=== PATIENT | male | born 1985 | race Caucasian/White ===

== ENCOUNTER → 2019-10-09 14:14 | Outpatient (BNVA) | payer OTHER, SELFPAY | PROVIDERS: Family Provider Nurse Practitioner; Referring Provider Nurse Practitioner; Visit Provider Specialist | DX: R56.9 Unspecified convulsions (principal); Z87.891 Personal history of nicotine dependence | CPT/HCPCS: 99203; 99213 ==

== ENCOUNTER 2020-12-05 01:10 | Emergency (ER) | payer OTHER, SELFPAY ==
--- NOTE | 2020-12-05 01:12 | XRR_ITS ---
PROCEDURE INFORMATION: Exam: XR Left Knee Exam date and time: 12/05/2020 1:13 AM Age: 35 years old Clinical indication: Injury or trauma; Fall; Blunt trauma; Knee; Left TECHNIQUE: Imaging protocol: XR Left knee. Views: 3 views. COMPARISON: No relevant prior studies available. FINDINGS: Bones/joints: Normal. Soft tissues: Normal. XR/XR knee LT 3V* [id number] IMPRESSION: No acute findings.
[2020-12-05 01:17] VITALS: BP 146/76; PULSE 80; RESP 16; TEMP 36.5; O2SAT 98; BMI 32.1
[2020-12-05 01:38] VITALS: PULSE 68
--- NOTE | 2020-12-05 01:47 | ED_ITS ---
HPI - Extremity Problem General: Chief complaint: Extremity Injury, Lower Stated complaint: LEFT KNEE INJURY Time Seen by Provider: 12/05/20 01:21 Source: patient Mode of arrival: ambulatory Limitations: no limitations History of Present Illness: HPI Narrative: Patient comes in for injury to the left knee. Patient reports he got up on skateboard and the skateboard maneuvered wrong causing him to slip out from under it twisting his left knee. Patient reports difficulty maintaining the knee in alignment and has been wearing a hinged brace. Injury occurred this afternoon. Patient does have a history of ankle knee repair. Patient appears well. Patient appears in mild pain at rest. MD Complaint: extremity pain Location: left and knee Relieving factors: cold therapy Exacerbating factors: weight bearing Review of Systems General: Reports: 10 or more systems reviewed and unremarkable except in HPI and below Musc: Reports: other (Left knee injury) PFS ED PFSH: Family History Other CAD (coronary artery disease) Diabetes Hypertension Stroke Social History Smoking and tobacco status: former smoker Quit status (tobacco): has quit using tobacco Year quit tobacco: 2007 Alcohol intake: current Alcohol intake frequency: few times a week Alcohol type: beer Physical Exam Const: COMMON NORMALS: no acute distress and patient oriented x3 GENERAL APPEARANCE: cooperative HENMT: COMMON NORMALS: normocephalic and Normal external nose present HEAD & SCALP: normal to inspection and normocephalic NOSE: Normal external nose present Eye: GENERAL EYE: appearance normal, both eyes and all related structures Neck/C-Spine: COMMON NORMALS: full ROM Chest: COMMONS NORMALS: normal inspection of the chest Resp: COMMON NORMALS: normal respiratory effort EFFORT & INSPECTION: Yes able to speak in complete sentences Cardio: COMMON NORMALS: regular rate and regular rhythm RATE: regular rate RHYTHM: regular rhythm GI: COMMON NORMALS: non-tender Back/Pelvis: COMMON NORMALS: thoracic and lumbar spine normal to inspection Extremity: NARRATIVE EXTREMITY EXAM: Tenderness noted to the medial knee pain. No sign of significant swelling or deformity is noted. Neuro: COMMON NORMALS: patient oriented x3 and moves all extremities Psych: COMMON NORMALS: mental status grossly normal and cooperative Skin: COMMON NORMALS: no rashes or lesions noted GENERAL SKIN EXAM: no rashes or lesions noted Course Vital Signs: Vital signs: Vital Signs Temperature 97.7 F 12/05/20 01:17 Pulse Rate 68 12/05/20 01:38 Respiratory Rate 16 12/05/20 01:17 Blood Pressure 146/76 12/05/20 01:17 Pulse Oximetry 98 12/05/20 01:17 MDM - Extremity (Nontraumatic) MDM Narrative: Medical decision making narrative: Patient comes in for pain and discomfort to the left knee. On exam patient has distal pulses intact. No obvious swelling is noted. No obvious deformity is noted. Patient has significant tenderness to the lateral aspect of the knee joint. Differential diagnosis includes but not limited to sprain, internal derangement of the knee, meniscus tear, cruciate ligament injury. Reviewed exam with patient with recommendations for treatment and follow-up. Patient reported understanding agreed to plan. Patient was written prescription for pain medication and anti- inflammatory. Patient was recommended to follow-up with orthopedics in 1 week for recheck of knee and further evaluation. Patient reported understanding. C ase management referral was placed. Discharge Plan Discharge Patient Disposition: Home Clinical Impression: Acute internal derangement of knee Qualifiers: Laterality: left Qualified Code(s): M23.92 - Unspecified internal derangement of left knee Condition: Stable Prescriptions: New hydrocodone-acetaminophen 5-325 mg tablet 1 tab PO Q6H PRN (Reason: pain) Qty: 14 RF: 0 diclofenac sodium 75 mg tablet,delayed release (DR/EC) 75 mg PO BID Qty: 20 RF: 0 No Action omeprazole 40 mg capsule,delayed release(DR/EC) 40 mg PO QDAY RF: 0 lisinopril-hydrochlorothiazide 10-12.5 mg tablet 2 tab PO QDAY RF: 0 hydrocodone-acetaminophen 7.5-325 mg tablet 1 tab PO BID RF: 0 Zyrtec 10 mg capsule 10 mg PO QDAY RF: 0 montelukast [Singulair] 10 mg tablet 10 mg PO QDAY RF: 0 Discharge Orders: Discharge ED (Routine); Ordered 12/05/20 Ordered By: Nicolás Andrews Referrals: Maria Eugenia Webster FNP [Family Provider] - Discharge Diet: Usual diet Discharge Activity: Increase activity as tolerated Patient Instructions: Knee Pain (ED), Opioid Safety Activity Restrictions/Additional Instructions: Wear hinged brace as you have been. Increase activity as tolerated. Use a cane or crutches for mobility. Take medications only as directed. Drink plenty of water with medication. Follow-up with primary care for further treatment. Follow-up with orthopedics for repeat evaluation the knee in 1 week. Return to the emergency department for new concerns. Coding Level of Care Code ED Food Assembler for John Fwjosh Exam Comprehensive
[2020-12-05] MEDS: HYDROcodone-acetaminophen 7.5-325 mg Tablet 1 TAB PO (02:11)
[2020-12-05 02:15] VITALS: BP 141/90; PULSE 78; RESP 18; O2SAT 97
--- NOTE | 2020-12-06 12:26 | DCPLANNER ---
Addendum entered by Xochilt Flores 12/06/20 12:27: Patient has [facility] insurance, manager of case management emailed patients information to Malka with [facility], for a consult to be placed, so that the authorization can be started. Original Note: manager real estate had message to schedule a followup appointment for patient with ortho. manager real estate called the ortho clinic, spoke with Ksenia, gave clinic patients information. manager real estate was told that patients information would be printed and reviewed. Clinic will call patient with appointment information.
--- NOTE | 2020-12-09 08:01 | DCPLANNER ---
Patient has a follow up appointment scheduled for Monday, December 14, 2020 at 2:[address] Villalobos at [facility]. Clinic will call patient with appointment information.
--- NOTE | 2020-12-29 13:17 | DCPLANNER ---
Patient had a follow up appointment scheduled for 12.14.[address] Villalobos at [facility] - patient did attend appointment.
== END 2020-12-05 02:16 | disposition home or self-care (01) ==
LOC: ER 02:14
PROVIDERS: Emergency Provider Nurse Practitioner Family; PCP Nurse Practitioner
DX: M23.92 Unspecified internal derangement of left knee (principal); Z87.891 Personal history of nicotine dependence; X50.1XXA Overexertion from prolonged static or awkward postures, initial encounter
CPT/HCPCS: 73562; 99283

== ENCOUNTER 2021-02-18 06:46 | Outpatient (CLI) | payer OTHER, SELFPAY ==
--- NOTE | 2021-02-18 07:15 | MR_ITS ---
WS: [id number] MRI LEFT KNEE NONCONTRAST TECHNIQUE: Axial PD, coronal PD fat sat, coronal PD, sagittal PD, and sagittal PD fat-sat images obta ined. CLINICAL INFORMATION: S83.412A - Sprain of medial collateral ligament of left knee COMPARISON: MRI June 20, 2018 FINDINGS: Distal quadriceps and patella tendons are intact. Hypertrophic patella. Normal ACL and PCL. Normal me dial and lateral meniscus. No acute appearing meniscal tears. Fluid and edema along the superficial and deep fibers of the medial collateral ligament which appears grossly intact. Findings consistent with grade 2 MCL injury. Normal lateral collateral ligament. Mil d chondromalacia patella. No subchondral edema. Normal popliteal fossa. MR/MR knee LT wo con* [id number] IMPRESSION: 1. Fluid along the superficial and deep fibers of the MCL consistent with grad e 2 injury. MCL appears grossly intact. 2. Normal ACL and PCL. 3. Medial and lateral meniscus are normal in appearance. 4. Mild chondromalacia patella. No subchondral edema. Outbridge grading:
== END 2021-02-18 06:47 | disposition home or self-care (01) ==
LOC: RADSHAW 06:47
PROVIDERS: PCP Nurse Practitioner; Visit Provider Orthopaedic Surgery
DX: S83.412A Sprain of medial collateral ligament of left knee, initial encounter (principal); M22.42 Chondromalacia patellae, left knee; X58.XXXA Exposure to other specified factors, initial encounter
CPT/HCPCS: 73721

== ENCOUNTER → 2021-07-18 08:21 | Outpatient (BNVA) | payer OTHER, SELFPAY | PROVIDERS: PCP Nurse Practitioner; Visit Provider Surgery | DX: Z11.52 Encounter for screening for COVID-19 (principal); Z20.822 Contact with and (suspected) exposure to COVID-19 | CPT/HCPCS: 87635 ==

== ENCOUNTER 2021-07-22 06:35 | Day surgery (SDC) | payer OTHER, SELFPAY ==
[2021-07-20 16:44] VITALS: BMI 33.2
--- NOTE | 2021-07-22 06:57 | ANES.PREANE2 ---
Pre-Anesthetic Assessment Pre-Anesthetic Assessment: Height/Weight: Height 1.83 m Weight 111.13 kg Preop Diagnosis: panendoscopy Proposed Procedure: Operation Date: 07/22/21 08:00 Proposed Procedures p EGD/colon [id number] K92.1(Not Applicable) - Joe Crane MD s Colonoscopy(Not Applicable) - Joe Crane MD Familial anesthetic complications: none Was Beta Sofia taken within 24 hours: N/A Was Clonidine taken within 24 hours: N/A Last intake: > 8 hrs Social: Social History: No alcohol and No tobacco Exam: Pre-Anes Outpt Exam: alert, oriented x 3, clear to auscultation bilaterally and regular rate & rhythm Airway: Cervical ROM: WNL MP: 4 Dentition: Full Additional comments: blum Pulmonary: Pulmonary: None reported CV/HEM: CV/HEM: HTN GI: GI: GERD Musc/skel: Comments: torn meniscus, ankle reconstruction Anesthetic Plan: ASA status: 2 Anesthesia: MAC Risk of > 500 ml blood loss (7ml/kg in children): No PFSH Anesthesia PFSH: Medical History (Updated 04/26/21 @ 08:56 by Joe Crane MD) Deafness GERD (gastroesophageal reflux disease) Hypertension Surgical History (Updated 04/26/21 @ 08:50 by Joe Crane MD) History of ankle surgery (3) bilateral History of back surgery ablation of nerves in back L3-L5 History of esophagogastroduodenoscopy (EGD) 2011 S/P left knee arthroscopy July 2018 Family History Other CAD (coronary artery disease) Diabetes Hypertension Stroke Social History Smoking and tobacco status: never smoked Quit status (tobacco): has quit using tobacco Year quit tobacco: 2007 Alcohol intake: current Alcohol intake frequency: few times a week Alcohol type: beer Data Anesthesia Cardiac Studies: No Data to Display
[2021-07-22 07:13] VITALS: BP 167/100; PULSE 78; RESP 18; TEMP 36.5; O2SAT 96
[2021-07-22] MEDS: sodium chloride 0.9% 1,000 ML 30 ML IV (07:24)
--- NOTE | 2021-07-22 08:21 | W.PM.OPSFHP ---
Same Day Surgery H&P Indication for Procedure/HPI DATE OF PROCEDURE: July 22, 2021 CHIEF COMPLAINT/INDICATIONFOR SURGICAL PROCEDURE: egd/colonoscopy for hematochezia PREOP DIAGNOSIS: panendoscopy PLANNED PROCEDRUE: Operation Date: 07/22/21 08:00 Proposed Procedures p EGD/colon [id number] K92.1(Not Applicable) - Joe Crane MD s Colonoscopy(Not Applicable) - Joe Crane MD Medications/Allergies* Home Medications Medication Instructions Recorded Confirmed Type cetirizine 10 mg capsule 10 mg PO QDAY 10/09/19 07/20/21 History lisinopril 10 2 tab PO QDAY tab 10/09/19 07/20/21 History mg-hydrochlorothiazide 12.5 mg tablet montelukast 10 mg tablet 10 mg PO QDAY 10/09/19 07/20/21 History omeprazole 40 mg capsule,delayed 40 mg PO QDAY 10/09/19 07/20/21 History release Allergies/Adverse Reactions Allergy/AdvReac Type Severity Reaction Status Date / Time No Known Allergies Allergy Verified 07/22/21 07:04 Current Medications: Generic Name Dose Route Start Last Admin Trade Name Freq PRN Reason Stop Dose Admin Sodium Chloride 1,000 mls @ 30 mls/hr 07/22/21 07:00 07/22/21 07:24 Sodium Chloride 0.9% IV 07/23/21 06:59 30 mls/hr .Q24H HUDSON Administration Pertinent History/Comorbid Conditions* Medical History (Updated 04/26/21 @ 08:56 by Joe Crane MD) Deafness GERD (gastroesophageal reflux disease) Hypertension Surgical History (Updated 04/26/21 @ 08:50 by Joe Crane MD) History of ankle surgery (3) bilateral History of back surgery ablation of nerves in back L3-L5 History of esophagogastroduodenoscopy (EGD) 2011 S/P left knee arthroscopy July 2018 Family History (Updated 10/09/19 @ 15:41 by Dori Cook LPN) Diabetes CAD (coronary artery disease) Hypertension Stroke Social History Smoking and tobacco status: never smoked Quit status (tobacco): has quit using tobacco Year quit tobacco: 2007 Alcohol intake: current Alcohol intake frequency: few times a week Alcohol type: beer Pertinent Exam Findings alert, oriented x 3 and regular rate & rhythm Recommendations Surgery/Procedure today Coding Level of Care Code Acute Legal Executive for Chg Fwd
[2021-07-22 08:52] VITALS: BP 128/91; PULSE 79; RESP 18; TEMP 36.1; O2SAT 94
[2021-07-22 09:31] VITALS: BP 149/101; PULSE 89; RESP 20; O2SAT 98
== END 2021-07-22 09:32 | disposition home or self-care (01) ==
PROVIDERS: PCP Nurse Practitioner; Visit Provider Surgery
PROC: 0DJ08ZZ Inspection of Upper Intestinal Tract, Via Natural or Artificial Opening Endoscopic (ICD-10-PCS; CPT 43235; principal; 2021-07-22 08:00)
PROC: 0DJD8ZZ Inspection of Lower Intestinal Tract, Via Natural or Artificial Opening Endoscopic (ICD-10-PCS; CPT 45378; 2021-07-22 08:00)
DX: K92.1 Melena (principal); K21.9 Gastro-esophageal reflux disease without esophagitis; K64.8 Other hemorrhoids; I10 Essential (primary) hypertension; Z87.891 Personal history of nicotine dependence; Z82.49 Family history of ischemic heart disease and other diseases of the circulatory system
CPT/HCPCS: 43235; 45378; 96360; 96361; J2704; J7030

== ENCOUNTER 2022-02-15 20:00 | Inpatient (IN) | payer OTHER, MEDICARE, SELFPAY ==
[2022-02-15 20:12] VITALS: BP 147/83; PULSE 120; RESP 18; TEMP 36.7; O2SAT 94
--- NOTE | 2022-02-15 20:19 | ED_ITS ---
HPI - General Adult General: Chief complaint: Psychiatric Symptoms Stated complaint: 96 Time Seen by Provider: 02/15/22 20:17 History of Present Illness: [37]yo patient w/ hx of depression presenting for worsening depression with SI. No active plans currently, On arrival, the patient is AAOx3 and cooperative with my evaluation. No focal complaints of chest pain, shortness of breath, palpitations, N/V, focal GI/ complaints. Currently denies HI. No complaints of hallucinations. Onset: acute Duration: ongoing Location: home Severity: severe Associated symptoms: Deny chest pain, dyspnea, nausea, rash, palpitations or vomiting Review of Systems Const: Denies: fever(s) or chills Eyes: Denies: change in vision ENMT: Denies: mouth pain Card: Denies: chest pain or palpitations Resp: Denies: dyspnea or non-productive cough GI: Denies: abdominal pain, nausea, vomiting or diarrhea : Denies: dysuria Musc: Denies: extremity pain Skin/Breast: Denies: rash or new lesions Neuro: Denies: weakness in extremities Psych: Reports: depression and suicidal ideation Andreas/Lymph: Denies: easy bruising PFSH ED PFSH: Medical History Deafness GERD (gastroesophageal reflux disease) Hypertension Surgical History History of ankle surgery (3) bilateral History of back surgery ablation of nerves in back L3-L5 History of esophagogastroduodenoscopy (EGD) (07/22/21) grade b espophagitis S/P left knee arthroscopy July 2018 Status post colonoscopy (07/22/21) Family History Other CAD (coronary artery disease) Diabetes Hypertension Stroke Social History Smoking and tobacco status: never smoked Quit status (tobacco): has quit using tobacco Year quit tobacco: 2007 Alcohol intake: current Alcohol intake frequency: few times a week Alcohol type: beer Physical Exam Const: COMMON NORMALS: alert HENMT: COMMON NORMALS: atraumatic HEAD & SCALP: atraumatic MOUTH: moist mucous membranes not abnormal Eye: COMMON NORMALS: EOMs intact bilaterally and conjunctivae normal CONJUNCTIVA: Yes conjunctivae normal Neck/C-Spine: COMMON NORMALS: full ROM and supple Resp: COMMON NORMALS: normal respiratory effort and clear to auscultation bilaterally AUSCULTATION: clear to auscultation bilaterally Cardio: COMMON NORMALS: regular rate RATE: regular rate GI: COMMON NORMALS: Soft to palpation and non-tender PALPATION: Yes Soft to palpation Extremity: COMMON NORMALS: full ROM Neuro: SENSORIUM/ORIENTATION: Yes alert MOTOR EXAM: No Abnormal motor strength present and Other motor observations present (no focal motor deficits) Psych: COMMON NORMALS: speech normal SPEECH: Yes normal speech MOOD & AFFECT: Yes depressed mood Course Vital Signs: Vital signs: Vital Signs Temperature 98.0 F 02/15/22 20:12 Pulse Rate 120 H 02/15/22 20:12 Respiratory Rate 18 02/15/22 20:12 Blood Pressure 147/83 02/15/22 20:12 Pulse Oximetry 94 02/15/22 20:12 MDM - General Adult Medical Decision Making [37]yo patient w/ hx ofd depression presenting for SI with depression. HDS, exam within normal limit Thoughts are linear and organized, and the patient has no AH/VH, or HI. Clinically the patient displays no overt toxidrome; they are well appearing, with low suspicion for toxic ingestion given history and exam. Symptoms unlikely 2/2 anemia, hypothyroidism, infection, or ICH. Workup: CBC, CMP, Lipase, salicylate/tylenol, UDS Lab findings: wnl, +marijuana in the urine [10:00pm] On reassessment, labs and workup wnl. Patient is hemodynamically stable with no acute medical complaints. Case discussed with psychiatric provider Dr. Cain at [facility] psych inpatient with recommendation for admission. Patient received ativan for anxiety. Disposition: Psych Lab Data : 02/15/22 20:18 02/15/22 20:18 Laboratory Results WBC 10.5 10^3/uL (4.0-10.0) H 02/15/22 20:18 RBC 4.64 10^6/uL (4.1-5.3) 02/15/22 20:18 Hgb 13.0 g/dL (11.7-16.6) 02/15/22 20:18 Hct 38.4 % (42.0-52.0) L 02/15/22 20:18 MCV 82.8 fl (80-94) 02/15/22 20:18 MCH 28.0 pg (28.0-34.0) 02/15/22 20:18 MCHC 33.9 g/dL (30.0-36.0) 02/15/22 20:18 RDW 13.4 % (12.1-15.1) 02/15/22 20:18 Plt Count 249 10^3/cmm (130-400) 02/15/22 20:18 MPV 11.8 fL (7.4-10.4) H 02/15/22 20:18 Neut % (Auto) 63.4 % 02/15/22 20:18 Lymph % (Auto) 26.8 % 02/15/22 20:18 Walton % (Auto) 7.5 % 02/15/22 20:18 Eos % (Auto) 1.6 % 02/15/22 20:18 Baso % (Auto) 0.4 % 02/15/22 20:18 Neut # (Auto) 6.64 10^3/uL (1.8-7.7) 02/15/22 20:18 Lymph # (Auto) 2.8 10^3/uL (0.8-4.8) 02/15/22 20:18 Walton # (Auto) 0.8 10^3/uL (0.2-0.9) 02/15/22 20:18 Eos # (Auto) 0.2 10^3/uL (0.0-0.8) 02/15/22 20:18 Baso # (Auto) 0.0 10^3/uL (0.0-0.1) 02/15/22 20:18 Nucleated RBC % (auto) 0 % 02/15/22 20:18 Nucleated RBCs # 0.0 /100WBC 02/15/22 20:18 Sodium 135 mmol/L (136-145) L 02/15/22 20:18 Potassium 3.7 mmol/L (3.5-5.1) 02/15/22 20:18 Chloride 97 mmol/L (98-107) L 02/15/22 20:18 Carbon Dioxide 22 mmol/L (22-29) 02/15/22 20:18 Anion Gap 19.7 (5-19) H 02/15/22 20:18 BUN 17 mg/dL (6-20) 02/15/22 20:18 Creatinine 1.1 mg/dL (0.7-1.2) 02/15/22 20:18 GFR Calculation 75.7 mL/min (90-130) L 02/15/22 20:18 Glucose 127 mg/dL (65-115) H 02/15/22 20:18 Calculated Osmolality 283 mOsm/kg (285-295) L 02/15/22 20:18 Calcium 9.7 mg/dL (8.5-10.5) 02/15/22 20:18 Total Bilirubin 0.2 mg/dL (0.15-1.2) 02/15/22 20:18 AST 24 U/L (0-40) 02/15/22 20:18 ALT 31 U/L (0-41) 02/15/22 20:18 Alkaline Phosphatase 71 IU/L (40-130) 02/15/22 20:18 Total Protein 7.9 g/dL (6.6-8.7) 02/15/22 20:18 Albumin 5.1 g/dL (3.5-5.2) 02/15/22 20:18 Globulin 2.8 g/dL (1.3-4.6) 02/15/22 20:18 Lipase 34 U/L (13-60) 02/15/22 20:18 Salicylates < 0.3 mg/dL (3-10) L 02/15/22 20:18 Urine Opiates Screen Negative ng/mL (Negative) 02/15/22 20:18 Acetaminophen < 5.0 ug/mL (10-30) L 02/15/22 20:18 Ur Barbiturates Screen Negative ng/mL (Negative) 02/15/22 20:18 Ur Phencyclidine Scrn Negative ng/mL (Negative) 02/15/22 20:18 Ur Amphetamines Screen Negative ng/mL (Negative) 02/15/22 20:18 U Benzodiazepines Scrn Negative ng/mL (Negative) 02/15/22 20:18 Urine Cocaine Screen Negative ng/mL (Negative) 02/15/22 20:18 U Marijuana (THC) Screen Positive ng/mL (Negative) H 02/15/22 20:18 Discharge Plan Discharge Admit Provider: Saji Cain Condition: Stable Coding Level of Care Code ED Phone Manager for Chg Fwd Exam Comprehensive
[2022-02-15 20:24] LABS: Basophils % 0.4 %; Eosinophils # 0.2 10^3/uL (0.0-0.8); Eosinophils % 1.6 %; Hematocrit 38.4 % (42.0-52.0); Lymphocytes # 2.8 10^3/uL (0.8-4.8); Lymphocytes % 26.8 %; Mean Corpuscular HGB Conc 33.9 g/dL (30.0-36.0); Mean Corpuscular Volume 82.8 fl (80-94); Mean Platelet Volume 11.8 fL (7.4-10.4); Monocytes # 0.8 10^3/uL (0.2-0.9); Monocytes % 7.5 %; Neutrophils # 6.64 10^3/uL (1.8-7.7); Neutrophils % 63.4 %; Nucleated Red Blood Cells % 0 %; Platelet Count 249 10^3/cmm (130-400); Red Blood Count 4.64 10^6/uL (4.1-5.3); Red Cell Distribution Width 13.4 % (12.1-15.1); White Blood Count 10.5 10^3/uL (4.0-10.0)
[2022-02-15 20:35] LABS: Amphetamines Screen Urine Negative (Negative); Barbiturates Screen Urine Negative (Negative); Benzodiazepines Screen Urine Negative (Negative); Cocaine Screen Urine Negative (Negative); Opiate Screen Urine Negative (Negative); PCP Screen Urine Negative (Negative); THC Screen Urine Positive (Negative)
[2022-02-15 20:50] LABS: Alanine Aminotransferase 31 U/L (0-41); Albumin Level 5.1 g/dL (3.5-5.2); Alkaline Phosphatase 71 IU/L (40-130); Anion Gap 19.7 (5-19); Aspartate Amino Transferase 24 U/L (0-40); Blood Urea Nitrogen 17 mg/dL (6-20); Calcium 9.7 mg/dL (8.5-10.5); Carbon Dioxide 22 mmol/L (22-29); Chloride 97 mmol/L (98-107); Globulin 2.8 g/dL (1.3-4.6); Glomerular Filtration Rate 75.7 mL/min (90-130); Glucose 127 mg/dL (65-115); Lipase 34 U/L (13-60); Osmolality Calculated 283 mOsm/kg (285-295); Potassium 3.7 mmol/L (3.5-5.1); Sodium 135 mmol/L (136-145); Total Bilirubin 0.2 mg/dL (0.15-1.2); Total Protein 7.9 g/dL (6.6-8.7)
[2022-02-15 20:51] LABS: Acetaminophen < 5.0 ug/mL (10-30); Salicylate < 0.3 mg/dL (3-10)
[2022-02-15] MEDS: nicotine 21 mg Patch 1 PATCH TRANSDERMA (20:55)
[2022-02-15] MEDS: LORazepam 2 mg Tablet PO (22:09)
[2022-02-15 22:24] VITALS: PULSE 92; RESP 16; O2SAT 99
[2022-02-15 22:29] VITALS: BP 121/79; PULSE 108; RESP 20; TEMP 36.8; O2SAT 96
[2022-02-15] MEDS: hyDROXYzine 25 mg Capsule 50 MG PO (23:08)
[2022-02-15 23:28] VITALS: BMI 32.1
[2022-02-15] MEDS: oxymetazoline 0.05% Nasal Spray 15 mL 2 SPRAY NOSTRIL-B (23:30)
--- NOTE | 2022-02-15 23:44 | PC.NURSE ---
ADMISSION ER- 37 yo patient w/ hx of depression presenting for worsening depression with SI. No active plans currently, On arrival, the patient is AAOx3 and cooperative with my evaluation. No focal complaints of chest pain, shortness of breath, palpitations, N/V, focal GI/ complaints. Currently denies HI. No complaints of hallucinations. Onset: acute NPU- PT IS COOPERATIVE, A&OX4. HAS APPROPRIATE AFFECT AND EYE CONTACT. THOUGHT PROCESS IS CLEAR. DOES APPEAR TENSE THROUGHOUT ADMISSION. PT REPORTS THAT RECENTLY HE'S BEEN UNDER STRESS AND DOES, AT TIMES, HAVE INTERMITTENT SI. HAS ONE PRIOR ATTEMPT IN 2012. REPORTS THAT HIS MARRIAGE IS MANJINDER AT THIS TIME. STATES HE WAS SEEING SOMEONE FOR OUTPATIENT AT THE [facility] 2X WEEK BUT THEY HAVE RETIRED NOW AND HAS BEEN UNABLE TO GET A CONNECTION WITH ANYONE HE HAS SEEN SINCE. DENIES ANY CURRENT SI. DENIES HI AND AVH. REPORTS USES MARIJUANA AND CBD DAILY. REPORTS HAVING A DIFFICULT TIME WITH BEING IN THE [place] AND WITH CIVILIANS. USES A CANE D/T NERVE DAMAGE TO LOWER BACK, AND ISSUES WITH HIS KNEES AND ANKLES WITH MULTIPLE SURGERIES. NOT ON ANY PSYCH MEDS. HX OF HIATAL HERNIA, CYST BENEATH KNEE CAP, LOWER LUMBAR NERVE ABLATION, B/L KNEE AND ANKLE SURGERIES, ACID REFLUX, HTN, PTSD, BIPOLAR, DEPRESSION.
[2022-02-16 06:00] VITALS: BP 110/66; PULSE 80; RESP 17; TEMP 36.8; O2SAT 99
[2022-02-16] MEDS: pantoprazole DR 40 mg Tablet PO (06:57)
[2022-02-16] MEDS: hydroCHLOROthiazide 25 mg Tablet PO (07:58)
[2022-02-16] MEDS: lisinopril 20 mg Tablet PO (07:58)
[2022-02-16] MEDS: cetirizine 10 mg Tablet PO (07:58)
[2022-02-16] MEDS: montelukast sodium 10 mg Tablet PO (07:58)
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
[2022-02-16] MEDS: nicotine 2 mg Gum BUCCAL (10:44)
--- NOTE | 2022-02-16 11:15 | DCPLANNER ---
IMM was completed with pt on 02/16/22 @ 1045am. Pt was given a copy of rights and stated he understood his rights.
[2022-02-16] MEDS: duloxetine 30 mg Capsule PO (12:30)
[2022-02-16 14:00] VITALS: BP 110/66; PULSE 80; RESP 17; TEMP 36.8; O2SAT 99
[2022-02-16 14:26] VITALS: BP 110/66; PULSE 80; RESP 17; TEMP 36.8; O2SAT 99
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
== END 2022-02-16 14:28 | disposition home or self-care (01) | DRG 881 ==
LOC: ER 20:38 → NP 22:03
PROVIDERS: Admitting Provider Psychiatry & Neurology Psychiatry; Emergency Provider Emergency Medicine; PCP Nurse Practitioner; Visit Provider Psychiatry & Neurology Psychiatry
DX: F32.9 Major depressive disorder, single episode, unspecified (principal); R45.851 Suicidal ideations; G89.29 Other chronic pain; F43.10 Post-traumatic stress disorder, unspecified; Z81.1 Family history of alcohol abuse and dependence; H91.90 Unspecified hearing loss, unspecified ear; K21.9 Gastro-esophageal reflux disease without esophagitis; I10 Essential (primary) hypertension; Z87.891 Personal history of nicotine dependence; E66.9 Obesity, unspecified; Z68.32 Body mass index [BMI] 32.0-32.9, adult
CPT/HCPCS: 80053; 80306; 80307; 83690; 85025; 97150; 97165; 99285

== ENCOUNTER 2022-03-18 14:24 | Emergency (ER) | payer OTHER, MEDICARE, SELFPAY ==
[2022-03-18 14:49] VITALS: BP 121/60; PULSE 106; RESP 18; TEMP 36.3; O2SAT 95; BMI 32.5
--- NOTE | 2022-03-18 15:41 | W.ED.WOUNDLC ---
HPI - Wound/Laceration General: Chief Complaint: Wound/Laceration Stated Complaint: head injury PFSH ED PFSH: Medical History (Updated 02/16/22 @ 11:16 by Jaylan Domingo MD) Deafness GERD (gastroesophageal reflux disease) Hypertension Surgical History History of ankle surgery (3) bilateral History of back surgery ablation of nerves in back L3-L5 History of esophagogastroduodenoscopy (EGD) (07/22/21) grade b espophagitis S/P left knee arthroscopy July 2018 Status post colonoscopy (07/22/21) Family History Other CAD (coronary artery disease) Diabetes Hypertension Stroke Social History Smoking and tobacco status: never smoked Quit status (tobacco): has quit using tobacco Year quit tobacco: 2007 Alcohol intake: current Alcohol intake frequency: few times a week Alcohol type: beer Course Vital Signs: Vital signs: Vital Signs Temperature 97.4 F L 03/18/22 14:49 Pulse Rate 106 H 03/18/22 14:49 Respiratory Rate 18 03/18/22 14:49 Blood Pressure 121/60 03/18/22 14:49 Pulse Oximetry 95 03/18/22 14:49 Discharge Plan Discharge Condition: Stable Prescriptions: No Action omeprazole 40 mg capsule,delayed release(DR/EC) 40 mg PO DAILY 0RF lisinopril-hydrochlorothiazide 10-12.5 mg tablet 2 tab PO DAILY 0RF Zyrtec 10 mg capsule 10 mg PO DAILY 0RF montelukast [Singulair] 10 mg tablet 10 mg PO DAILY 0RF Referrals: Maria Eugenia Webster, LATHE HAND [Primary Care Provider] - Coding Level of Care Code ED Party Plan Sales Agent for [facility]
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
== END 2022-03-18 16:36 | disposition home or self-care (01) ==
PROVIDERS: Emergency Provider Emergency Medicine; PCP Nurse Practitioner
DX: S01.01XA Laceration without foreign body of scalp, initial encounter (principal); I10 Essential (primary) hypertension; Z87.891 Personal history of nicotine dependence; W22.8XXA Striking against or struck by other objects, initial encounter
CPT/HCPCS: 12002; 99282

== ENCOUNTER → 2022-07-24 14:56 | Outpatient (BNVA) | payer OTHER, SELFPAY | PROVIDERS: PCP Nurse Practitioner; Referring Provider Nurse Practitioner; Visit Provider Podiatrist Foot & Ankle Surgery | DX: M76.72 Peroneal tendinitis, left leg (principal) | CPT/HCPCS: 73610; 73630; 99204 ==

== ENCOUNTER 2022-08-17 06:51 | Outpatient (CLI) | payer OTHER, SELFPAY ==
--- NOTE | 2022-08-17 07:15 | MR_ITS ---
WS: [id number] MRI LEFT ANKLE without CONTRAST. COMPARISON: LEFT ankle radiograph 07/24/2022 Multiplanar, multisequence imaging is performed without contrast. History: LEFT ankle pain, chronic. Prior surgery 2018. No acute fracture or marrow edema. There is a very small osteochondral lesion distal fibula. No acute fracture. No osteochondral lesions along the talar dome. The distal Achilles tendon is normal caliber. No thinning or increased signal. Plantar aponeurosis an d fascia is negative. No significant spurring or fibrosis. There is a very slight mild striation within the talofibular ligament but the ligament is intact. Thi s may be from prior injury. No complete or recent tear. No surrounding fluid. Peroneus brevis tendon is intact without full-thickness tear. There is increased T2 signal extending over a length of several centimeters consistent with a split tear. This may be chronic. There is very slight irregularity along the posterior surface of the tendon at the level of the fibular tip. This is also the site of a magic angle phenomenon which is an artifact. This signal extends over a length of numerous centimeters therefore I do believe this is probably a minimal chronic peroneus brevis te ndon tear. The longus tendon is normal caliber. No fluid along the tendon sheath. Flexor and extensor tendons are unremarkable. There is increased fluid surrounding the os trigonum. The adjacent flexor hallucis longus tendon is n ormal. MR/MR ankle LT wo con* [id number] IMPRESSION: 1. No marrow edema or fracture. 2. Subtle increased T2 signal extending through the peroneus brevis tendon ove r several centimeters beginning posterior to the distal fibula. Suspect this is probably a chronic split tear. This is also a common location for magic angle phenomenon. Due to the length of the signal abnormality believe this is probabl y related to a split tear which may be chronic. No adjacent fluid. 3. Small amount of fluid surrounding the os trigonum. No involvement of the f lexor hallucis longus tendon sheath.
== END 2022-08-17 06:52 | disposition home or self-care (01) ==
PROVIDERS: PCP Nurse Practitioner; Visit Provider Podiatrist Foot & Ankle Surgery
DX: M76.72 Peroneal tendinitis, left leg (principal)
CPT/HCPCS: 73721

== ENCOUNTER → 2022-08-21 08:23 | Outpatient (BNVA) | payer OTHER, SELFPAY | PROVIDERS: PCP Nurse Practitioner; Visit Provider Podiatrist Foot & Ankle Surgery | DX: M76.72 Peroneal tendinitis, left leg (principal); S86.312A Strain of muscle(s) and tendon(s) of peroneal muscle group at lower leg level, left leg, initial encounter; X58.XXXA Exposure to other specified factors, initial encounter | CPT/HCPCS: 99214 ==

== ENCOUNTER → 2022-11-13 07:55 | Outpatient (BNVA) | payer OTHER, SELFPAY | PROVIDERS: PCP Nurse Practitioner; Visit Provider Podiatrist Foot & Ankle Surgery | DX: M76.72 Peroneal tendinitis, left leg (principal); S86.312A Strain of muscle(s) and tendon(s) of peroneal muscle group at lower leg level, left leg, initial encounter; X58.XXXA Exposure to other specified factors, initial encounter | CPT/HCPCS: 99213 ==

== ENCOUNTER 2022-12-06 08:01 | Outpatient (CLI) | payer OTHER, SELFPAY ==
--- NOTE | 2022-12-06 08:14 | MR_ITS ---
WS: [id number] MRI CERVICAL SPINE NONCONTRAST TECHNIQUE: Sagittal T1, T2 and STIR imaging. Axial T2, gradient, and fiesta imaging. CLINICAL INFORMATION: NECK PAIN RADIATING UP TO THE TOP OF HIS HEAD COMPARISON: None. FINDINGS: Straightening of the normal cervical lordosis. Cord signal is normal. No high-grade central canal michelle rowing. C2-C3: Mild facet arthropathy. Spinal canal and foramen are patent. C3-C4: Minimal disc bulging. Mild osteophytic ridging. Mild LEFT bony foraminal narrowing. Mild facet arthropathy. Spinal canal is patent. C4-C5: Mild disc bulging. Moderate facet arthropathy slightly worse in the LEFT. Mild LEFT bony jasson inal narrowing. C5-C6: Slight retrolisthesis C5 on C6. Tiny annular fissure. Mild LEFT and no significant RIGHT jasson inal narrowing. Moderate facet arthropathy. Spinal canal is patent. C6-C7: Mild bilateral bony foraminal narrowing. Spinal canal and foramen are patent. Mild facet arthr opathy. C7-T1: Mild LEFT and no significant RIGHT foraminal narrowing. Spinal canal is patent. Mild bilateral bony foraminal narrowing T1-T2. Visualized brain stem structures: Normal. Prevertebral soft tissues: Normal. MR/MR cervical spin wo con* [id number] IMPRESSION: 1. Straightening of the normal cervical lordosis. Cord signal is normal. 2. Mild disc bulging C5-C6 with a tiny annular fissure. Spinal canal is patent . 3. Mild bony foraminal narrowing more prominent at LEFT C3-C4, LEFT C4-C5, LEF T C5-C6 and bilateral C6-C7. 4. Mild to moderate facet arthropathy worse at C3-C4, C4-C5, and C5-C6.
== END 2022-12-06 08:02 | disposition home or self-care (01) ==
LOC: RAD 08:06
PROVIDERS: PCP Nurse Practitioner; Visit Provider Nurse Practitioner
DX: M50.222 Other cervical disc displacement at C5-C6 level (principal); M48.02 Spinal stenosis, cervical region; M47.812 Spondylosis without myelopathy or radiculopathy, cervical region
CPT/HCPCS: 72141

== ENCOUNTER 2023-01-07 09:00 | Emergency (ER) | payer OTHER, SELFPAY ==
[2023-01-07 09:07] VITALS: BP 170/92; PULSE 75; TEMP 36.6; O2SAT 95; BMI 31.8
--- NOTE | 2023-01-07 09:28 | XRR_ITS ---
PROCEDURE INFORMATION: Exam: XR Right Wrist Exam date and time: 01/07/2023 9:48 AM Age: 37 years old Clinical indication: Injury or trauma; Fall; Blunt trauma (contusions or hematomas); Wrist; Right; Additional info: Pain, swelling, ecchymosis TECHNIQUE: Imaging protocol: Radiologic exam of the right wrist. Views: 1 or 2 views. COMPARISON: No relevant prior studies available. FINDINGS: Bones/joints: Minimally displaced acute oblique fracture of the 5th distal metacarpal metaphysis. The wrist is unremarkable. Soft tissues: Normal. XR/XR wrist RT 2V [id number] IMPRESSION: Distal 5th metacarpal fracture.
--- NOTE | 2023-01-07 09:28 | XRR_ITS ---
PROCEDURE INFORMATION: Exam: XR Right Hand Exam date and time: 01/07/2023 9:48 AM Age: 37 years old Clinical indication: Injury or trauma; Fall; Blunt trauma (contusions or hematomas); Hand; Right; Additional info: Pain, swelling, ecchymosis TECHNIQUE: Imaging protocol: Radiologic exam of the right hand. Views: 3 or more views. COMPARISON: No relevant prior studies available. FINDINGS: Bones/joints: There is a minimally displaced oblique fracture of the distal 5th metacarpal metaphysis. Joint alignment is normal. No fracture is seen elsewhere. Soft tissues: Soft tissue edema in the hypothenar eminence and dorsomedial aspect of the hand. XR/XR hand RT min 3V* [id number] IMPRESSION: Fifth metacarpal fracture.
--- NOTE | 2023-01-07 09:29 | W.ED.EXTPRO ---
HPI - Extremity Problem General: Chief complaint: Extremity Injury, Upper Stated complaint: right hand injury Time Seen by Provider: 01/07/23 09:11 History of Present Illness: Mr. Robin is a [id number] 37-year-old man presents with right wrist and hand swelling, ecchymosis, pain. Patient states he has had a rough week with this extremity. He has soft tissue injuries noted to the dorsal aspect of the right index finger and middle finger. He also has ecchymosis to the ulnar aspect of the right wrist and now has developed swelling and ecchymosis to the right dorsal and palmar aspect of the hand. This was sustained when he slipped on the olguin this morning and landed on his right upper extremity. He noted ecchymosis to the palm as well as the dorsal aspect of the hand. Patient reports he is up-to-date on tetanus Denies any chronic medical conditions that contributory Associated symptoms: Deny chest pain, fever(s) or rash Review of Systems General: Reports: 10 or more systems reviewed and unremarkable except in HPI and below Const: Denies: fever(s), chills, change in appetite, change in weight, fatigue or malaise Eyes: Denies: change in vision, eye discomfort, eye discharge or eye redness ENMT: Denies: throat pain, enlarged tonsils, odynophagia, hoarseness, ear or mastoid pain, ear discharge, change in hearing, tinnitus, nasal discharge, nasal congestion, post nasal drip or sinus pain Card: Denies: chest pain, palpitations, irregular heart rhythm, edema, dyspnea on exertion, orthopnea or leg pain with exertion Resp: Denies: dyspnea, productive cough, non-productive cough, wheezing, stridor or chest congestion GI: Denies: abdominal pain, nausea, vomiting, dysphagia, diarrhea, constipation, bloating, GI cramping or hematochezia : Denies: flank pain, dysuria, urinary frequency, urinary urgency, urinary hesitancy, oliguria or hematuria Musc: Denies: neck pain, back pain, extremity pain, joint pain, joint swelling, joint redness, joint warmth or muscle weakness Skin/Breast: Denies: rash, pruritus, erythema, photosensitivity or new lesions Neuro: Denies: headache(s), numbness in extremities, weakness in extremities, sensory changes, lack of coordination, difficulty walking, frequent falls, dizziness, confusion, Slurred speech present, difficulty communicating thoughts, seizure-like activity or involuntary movements Endo: Denies: polyuria, polydipsia or tired all the time Andreas/Lymph: Denies: easy bruising or easy bleeding PFSH ED PFSH: Medical History Deafness GERD (gastroesophageal reflux disease) Hypertension Surgical History History of ankle surgery (3) bilateral History of back surgery ablation of nerves in back L3-L5 History of esophagogastroduodenoscopy (EGD) (07/22/21) grade b espophagitis S/P left knee arthroscopy July 2018 Status post colonoscopy (07/22/21) Family History Other CAD (coronary artery disease) Diabetes Hypertension Stroke Social History Smoking and tobacco status: never smoked Quit status (tobacco): has quit using tobacco Year quit tobacco: 2007 Alcohol intake: current Alcohol intake frequency: few times a week Alcohol type: beer Substance/Drug Use: never Physical Exam Const: COMMON NORMALS: no acute distress, patient oriented x3 and alert GENERAL APPEARANCE: cooperative ORIENTATION/CONSCIOUSNESS: Yes awake, Yes oriented to person, Yes oriented to place and Yes oriented to time HENMT: COMMON NORMALS: normocephalic and atraumatic HEAD & SCALP: normocephalic and atraumatic FACE & SINUS: normal facial exam MOUTH: Normal oral and palatal mucosa present THROAT: posterior oropharynx normal Eye: COMMON NORMALS: Equal, round and reactive pupils present, EOMs intact bilaterally, conjunctivae normal and no scleral icterus GENERAL EYE: appearance normal, both eyes and all related structures ALIGNMENT: Yes alignment normal PERIORBITAL: periorbital findings normal CONJUNCTIVA: Yes conjunctivae normal PUPIL: Yes Equal, round and reactive pupils present Neck/C-Spine: COMMON NORMALS: full ROM GENERAL: Yes normal visual inspection Lymph: LYMPHATIC: no lymphadenopathy noted Chest: COMMONS NORMALS: normal inspection of the chest Breast/axilla inspection: Yes no chest deformity, asymmetry, normal contours, no nodules, masses, tenderness Resp: COMMON NORMALS: normal respiratory effort, No retractions, No use of accessory muscles and clear to auscultation bilaterally EFFORT & INSPECTION: Yes able to speak in complete sentences and Yes symmetric chest movement AUSCULTATION: clear to auscultation bilaterally Cardio: COMMON NORMALS: regular rate, regular rhythm and Peripheral pulses 2+ throughout RATE: regular rate RHYTHM: regular rhythm PERIPHERAL PULSES: Peripheral pulses 2+ throughout GI: COMMON NORMALS: Normal to inspection, nondistended, normoactive bowel sounds present, Soft to palpation, non-tender and No hepatosplenomegaly present INSPECTION: Yes normal to inspection AUSCULTATION: Yes normoactive bowel sounds PALPATION: Yes Soft to palpation and Yes No hepatosplenomegaly present RECTAL EXAM: Yes deferred Extremity: COMMON NORMALS: normal to inspection GENERAL: Yes normal exam except as noted OTHER: Skin is clean and dry. Abrasions noted to hand He has ecchymosis and edema to the hand as well as wrist Patient is able to extend his wrist, give thumbs up, make an okay sign, cross fingers, abduct fingers and make a fist Sensations intact light touch at radial, median, ulnar nerve distribution Neuro: COMMON NORMALS: patient oriented x3 SENSORIUM/ORIENTATION: Yes alert, Yes oriented to person, Yes oriented to place and Yes oriented to time CRANIAL NERVES: Yes CN normal except as noted Psych: COMMON NORMALS: mental status grossly normal, Normal thought process present, cooperative, activity/motor behavior normal, denies homicidal ideation and denies suicidal ideation THOUGHT PROCESS: Normal thought process present Skin: COMMON NORMALS: no rashes or lesions noted, no wounds and turgor normal GENERAL SKIN EXAM: no rashes or lesions noted and turgor normal OTHER: Ecchymosis, swelling, tenderness to palpation to the right hand and wrist Neurovascularly intact Course Vital Signs: Vital signs: Vital Signs Temperature 98 F 01/07/23 09:07 Pulse Rate 75 01/07/23 09:07 Blood Pressure 170/92 01/07/23 09:07 Pulse Oximetry 95 01/07/23 09:07 Oxygen Delivery Me thod Room Air 01/07/23 09:07 MDM - Extremity (Nontraumatic) Medical Decision Making Patient was evaluated in the emergency department for right wrist and hand swelling. Patient extremity was iced and he underwent XR imaging of the wrist and hand which reveals 5th metacarpal fracture. Patient was treated with Toradol IM and placed in an ulnar gutter splint. He has been instructed to remain nonweightbearing with that right upper extremity. No lifting pushing or pulling. Patient is going to follow-up with Dr. Villalobos. Referral has been sent. Has been provided splint care instructions Lab Data Radiology Impressions Hand X-Ray 01/07/23 09:28 IMPRESSION: Fifth metacarpal fracture. Wrist X-Ray 01/07/23 09:28 IMPRESSION: Distal 5th metacarpal fracture. Discharge Plan Discharge Patient Disposition: Home Clinical Impression: Fracture of hand Condition: Stable Prescriptions: No Action omeprazole 40 mg capsule,delayed release(DR/EC) 40 mg PO DAILY lisinopril-hydrochlorothiazide 10-12.5 mg tablet 2 tab PO DAILY Zyrtec 10 mg capsule 10 mg PO DAILY montelukast [Singulair] 10 mg tablet 10 mg PO DAILY hydrocodone-acetaminophen 7.5-325 mg tablet 1 tab PO Q8H PRN (DME) Low profile custom molded insoles See Rx Instructions .Route .MEDSUPPLY Qty: 1 0RF Rx Instructions: As directed Discharge Orders: Discharge ED (Routine); Ordered 01/07/23 Ordered By: Gabriel Brady Referrals: Maria Eugenia Webster, 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 Villalobos. Coding Level of Care Code ED [employer] Inspector for John Segovia
== END 2023-01-07 11:41 | disposition home or self-care (01) ==
PROVIDERS: Emergency Provider Nurse Practitioner; PCP Nurse Practitioner
DX: S62.306A Unspecified fracture of fifth metacarpal bone, right hand, initial encounter for closed fracture (principal); I10 Essential (primary) hypertension; Z87.891 Personal history of nicotine dependence; W01.0XXA Fall on same level from slipping, tripping and stumbling without subsequent striking against object, initial encounter
CPT/HCPCS: 29130; 73100; 73130; 99283

== ENCOUNTER 2023-01-17 11:47 | Outpatient (CLI) | payer OTHER, SELFPAY | END 2023-01-17 11:48 | disposition home or self-care (01) | LOC: SPT 11:49 | PROVIDERS: PCP Nurse Practitioner; Visit Provider Orthopaedic Surgery | DX: Z46.89 Encounter for fitting and adjustment of other specified devices (principal); S62.366D Nondisplaced fracture of neck of fifth metacarpal bone, right hand, subsequent encounter for fracture with routine healing; X58.XXXD Exposure to other specified factors, subsequent encounter | CPT/HCPCS: 26600; 97760; 99212; L3984 ==

== ENCOUNTER → 2024-02-06 14:11 | Outpatient (BNVA) | payer OTHER, SELFPAY | PROVIDERS: PCP Nurse Practitioner; Referring Provider Nurse Practitioner; Visit Provider Surgery | DX: K42.9 Umbilical hernia without obstruction or gangrene (principal) | CPT/HCPCS: 99203; 99214 ==

== ENCOUNTER 2024-02-14 13:59 | Outpatient (CLI) | payer OTHER, SELFPAY ==
--- NOTE | 2024-02-14 14:21 | CT_ITS ---
WS: [id number] CT ABDOMEN WITH AND WITHOUT CONTRAST HISTORY: UMBILICAL HERNIA Contiguous dual phase 5 mm axial imaging performed to the abdomen. Oral contrast has been provided. C oronal and sagittal reformats are submitted. All CT scans at [facility] use at least one of t hese dose optimization techniques: automated exposure control; mA and/or kV adjustment per patient si ze (includes targeted exams where dose is matched to clinical indication); or iterative reconstructio n. IV CONTRAST: Omnipaque 350; 100 mL IV. Oral contrast: Yes. DLP: 1233.26 mGy.cm COMPARISON: None available. Lower thorax: Lung bases are clear. Heart is normal size. Small hiatal hernia. Liver/biliary system: Normal size liver. Mild hepatic steatosis. There are several scattered too smal l to characterize hypodensities scattered throughout the liver. These are too small to further charac terize. No bile duct dilatation. Gallbladder: Normal. No gallstones or wall thickening. No pericholecystic fluid. Pancreas: Normal size pancreas and pancreatic duct. No adjacent inflammation. Spleen: Normal size spleen. No mass or infarct. Adrenal glands: Normal. Right kidney: Normal. Left kidney: Normal. Aorta: Normal. Lymphadenopathy: None. Free fluid: None. GI tract: Negative as visualized to the abdomen. Abdominal wall: Umbilical hernia contains omental fat only. Orifice of the hernia is 13 mm. No additi onal abdominal wall hernia identified in the abdomen. Visualized osseous structures: Unremarkable. CT/CT abdomen wo/w con [id number] IMPRESSION: 1. Fat-containing ventral umbilical hernia. Orifice is 13 mm of the hernia. 2. There are several scattered hypodensities throughout the liver which are to o small to characterize. Differential includes small cysts, hemangiomas, biliar y hamartomas or early metastatic lesions. This can be reevaluated by ultrasound or hepatic MRI with and without contrast. 3. Small hiatal hernia.
[2024-02-14] MEDS: iohexol 300 mg/mL 100 mL Btl IV (15:20)
[2024-02-14] MEDS: iohexol 350 mg/mL 500 mL Btl (per mL) PO (15:20)
== END 2024-02-14 14:00 | disposition home or self-care (01) ==
LOC: RAD 13:59
PROVIDERS: PCP Nurse Practitioner; Visit Provider Nurse Practitioner
DX: K42.9 Umbilical hernia without obstruction or gangrene (principal); K44.9 Diaphragmatic hernia without obstruction or gangrene
CPT/HCPCS: 74170; Q9967

== ENCOUNTER 2024-04-08 06:24 | Outpatient (CLI) | payer OTHER, SELFPAY ==
--- NOTE | 2024-04-08 07:35 | MR_ITS ---
WS: [id number] MRI/MRCP OF THE ABDOMEN WITHOUT GADOLINIUM ENHANCEMENT TECHNIQUE: Coronal T2 Fase BH, Axial T2 Fase BH, Axial T2 FS BH, Zxial 3D Kathleen BH, Axial DWI BH, 2D MRCP Radial BH, 3D MRCP (Resp), and Axial 3D Dyn BH Post sequences. CLINICAL INFORMATION: LIVER LESIONS COMPARISON: CT 02/14/2024 FINDINGS: Again seen are numerous tiny T2 hyperintense lesions within both hepatic lobes. Most of these appear to represent tiny hepatic cysts without enhancement. Some are too small to definitively characterize but likely represent tiny cysts. 12-month follow-up to confirm stability. Mild diffuse fatty infiltration of the liver. Small esophageal hernia. Normal pancreas. Normal spleen . Small splenule. Adrenal glands are normal. No hydronephrosis in either kidney. Normal caliber upper abdominal aorta. Portal vein and splenic vein are patent. Normal gallbladder. No other suspicious fi ndings. No abnormal gadolinium enhancement. MR/MR abdomen wo/w con* [id number] Impression: 1. Numerous tiny hepatic lesions most of which appear to represent tiny cysts without enhancement. Some remain too small to definitively characterize and rec ommend 12-month follow-up CT abdomen/pelvis to ensure stability. 2. Diffuse fatty infiltration of liver. 3. Small esophageal hiatal hernia. 4. No other suspicious findings.
[2024-04-08] MEDS: gadobenate dimeglumine 20 mL vial IV (09:02)
== END 2024-04-08 06:25 | disposition home or self-care (01) ==
LOC: RAD 06:24
PROVIDERS: PCP Nurse Practitioner; Visit Provider Nurse Practitioner
DX: Q44.6 Cystic disease of liver (principal); K44.9 Diaphragmatic hernia without obstruction or gangrene; K76.0 Fatty (change of) liver, not elsewhere classified
CPT/HCPCS: 74183; A9577

== ENCOUNTER 2024-04-17 06:32 | Outpatient (CLI) | payer OTHER, SELFPAY ==
--- NOTE | 2024-04-17 | ECG_ITS ---
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 Interpretive Statements NAME OF STUDY: LEXISCAN SESTAMIBI STRESS TEST INDICATION: [Chest Pain] Procedure: At the baseline, the blood pressure was 140/95 mmHg with a heart rate of 56 bpm. The electrocardiogram showed sinus bradycardia, normal axis with normal ST and T's. The Lexiscan was infused over a period of 20 seconds. A total of 0.4 mg of Lexiscan was infused. The stress phase was continued for a total of 5 minutes. Heart rate was at the end of stress phase was 67 bpm and a blood pressure of 153/92 mmHg. The EKG at the peak infusion revealed normal sinus rhythm with no significant ST-T wave changes. Sestamibi was injected 20 seconds after the Lexiscan infusion. Blood pressure at the end of recovery phase was 147/100 mmHg with a heart rate of 67 bpm. Conclusion: 1. Normal EKG response to Lexiscan infusion 2. No Lexiscan induced chest pain or cardiac arrhythmia. 3. Normal blood pressure and heart rate response. 4. Sestamibi/sestamibi perfusion scan pending; see separate report. Electronically Signed On 04-27-2024 20:59:41 CDT by Charlie Velasquez M.D. [email or web address]
[2024-04-17 06:56] VITALS: BMI 33.0
--- NOTE | 2024-04-17 07:08 | NMCV_ITS ---
NM carine perf SPECT r/s* [id number] Bishop Robin Age: 39 Gender: M : 1985 Exam Date: 04/17/2024 07:51 Ordering Phys: Maria Eugenia Webster Technologist: MARITZA Castellon Exam Location: [facility] Indications: CP STRESS TEST Please see separate stress test report in [facility] for full findings IMAGE PROTOCOL Rest/Stress 1 Lexiscan Day Radiopharmaceutical Dose (mCi) Administration Site Administered by Rest: Tc-99m 10.7 IV MARITZA Knutson Sestamibi Stress:Tc-99m 32.7 IV MARITZA Castellon Sestamiisaac Rest: 17-Apr-2024 60 Discovery 630 Stress: 17-Apr-2024 30 Discovery 630 0.4mg Lexiscan. Images obtained in supine and prone position. SPECT RESULTS Technical Quality: Good Raw Data Analysis: Normal Image Corrections: No attenuation or motion correction applied Summed Stress Score: 9 Summed Rest Score: 8 Summed Difference Score: 4 PERFUSION FINDINGS There is a medium sized area of moderate intensity, partially reversible perfusion defect seen in inferior wall. This is consistent with medium sized area of prior infarct with small to medium sized area of hugh-infarct ischemia in the RCA territory. FUNCTIONAL RESULTS (calculated via Gated SPECT) Stress Image LV EF (%): 59 Stress EDV (mL):152 TID: 1.08 Stress ESV (mL):62 FUNCTIONAL FINDINGS: There is normal left ventricular systolic function. IMPRESSIONS 1. Medium sized area of prior infarct with small to medium sized area of hugh- infarct ischemia seen in RCA territory. 2. LV systolic function is normal. Charlie Velasquez MD (Electronically Signed) Final Date: 17 April 2024 13:03 S
[2024-04-17] MEDS: regadenoson 0.4 Mg/5 ml Syringe IVP (08:49)
[2024-04-17 09:05] VITALS: BP 159/99; PULSE 62
== END 2024-04-17 06:33 | disposition home or self-care (01) ==
LOC: CDL 06:32
PROVIDERS: PCP Nurse Practitioner; Visit Provider Nurse Practitioner
DX: R07.9 Chest pain, unspecified (principal); R94.39 Abnormal result of other cardiovascular function study
CPT/HCPCS: 36415; 78452; 93017; 96374; A9500; J2785

== ENCOUNTER → 2024-06-30 13:45 | Outpatient (BNVA) | payer OTHER, SELFPAY | PROVIDERS: PCP Nurse Practitioner; Visit Provider Internal Medicine Cardiovascular Disease | DX: R94.39 Abnormal result of other cardiovascular function study (principal); I10 Essential (primary) hypertension; E78.5 Hyperlipidemia, unspecified; R06.09 Other forms of dyspnea; G47.33 Obstructive sleep apnea (adult) (pediatric); F17.200 Nicotine dependence, unspecified, uncomplicated | CPT/HCPCS: 99204 ==

== ENCOUNTER 2024-07-21 08:32 | Outpatient (CLI) | payer OTHER, SELFPAY ==
--- NOTE | 2024-07-21 10:00 | USCV_ITS ---
Bishop Robin Age: 39 Gender: M : 1985 Exam Date: 07/21/2024 09:00 Ordering Phys: Gurvinder Vega MD ([email or web address]) Technologist: [place] [facility] [place]: cp BP: 140 / 90 HR: 64 Rhythm: Sinus Technical Quality: Adequate MEASUREMENTS (Male / Female) Normal Values 2D ECHO LV Diastolic Diameter PLAX 4.1 cm 4.2 - 5.9 / 3.9 - 5.3 cm IVS Diastolic Thickness 1.3 cm 0.6 - 1.0 / 0.6 - 0.9 cm IVS Systolic Thickness 1.8 cm LVPW Diastolic Thickness 1.9 cm 0.6 - 1.0 / 0.6 - 0.9 cm LVPW Systolic Thickness 1.8 cm LVOT Diameter 2.1 cm LV Ejection Fraction 2D Teich 62.7 % LV Ejection Fraction MOD 4C 61.0 % LV Ejection Fraction MOD 2C 71.5 % LV Ejection Fraction 2C AL 73.2 % LA Diameter 3.8 cm RA Systolic Volume 4C AL 49.0 ml RA Systolic Volume 4C MOD 45.0 ml Aorta at Sinotubular Diameter 3.8 cm IVC Diameter 2.3 cm M-MODE LA Ao Ratio MM 1.0 AV Cusp Separation MM 2.6 cm DOPPLER AV Peak Velocity 124.0 cm/s LVOT Peak Velocity 89.0 cm/s AV Area Cont Eq vti 3.3 cm squared AV Area Cont Eq pk 2.5 cm squared MV Area PHT 2.9 cm squared Mitral E to A Ratio 1.1 TV Peak Velocity 135.0 cm/s TR Peak Velocity 137.0 cm/s TR Peak Gradient 7.5 mmHg TV Peak E Velocity 82.0 cm/s Right Atrial Pressure 3.0 mmHg Pulmonary Artery Systolic Pressu 10.5 mmHg PV Peak Velocity 117.0 cm/s FINDINGS Left Ventricle Normal left ventricular size and systolic function, EF 61%.no regional wall motion abnormalities. Mild concentric left ventricular hypertrophy, some features of grade 1 left- ventricular diastolic dysfunction Right Ventricle The right ventricle is normal in size and function. Right Atrium The right atrium is normal in size. Left Atrium The left atrium is normal in size. Mitral Valve No gross abnormalities noted . Aortic Valve No gross abnormalities noted . Tricuspid Valve Trace tricuspid valve regurgitation. Estimated pulmonary artery peak systolic pressure possibly within normal limits Pulmonic Valve No gross abnormalities noted . Pericardium Normal pericardium without effusion. Aorta Normal ascending aorta dimension. IVC Inferior vena cava not visualized. CONCLUSIONS Normal left ventricular size and systolic function, EF 61%.no regional wall motion abnormalities. Mild concentric left ventricular hypertrophy, some features of grade 1 left- ventricular diastolic dysfunction. Trace tricuspid valve regurgitation. Estimated pulmonary artery peak systolic pressure possibly within normal limits. There is no pericardial effusion. There are no intracardiac masses. No similar previous studies are available for comparison Dr Gurvinder Vega MD [facility] (Electronically Signed) Final Date: 22 July 2024 10:04 S
== END 2024-07-21 08:33 | disposition home or self-care (01) ==
PROVIDERS: PCP Nurse Practitioner; Visit Provider Internal Medicine Cardiovascular Disease
DX: I50.30 Unspecified diastolic (congestive) heart failure (principal); R06.09 Other forms of dyspnea
CPT/HCPCS: 93306

== ENCOUNTER 2025-01-21 18:10 | Observation (INO) | payer OTHER, SELFPAY ==
[2025-01-21] VITALS (52 sets, daily range): BP systolic 124–207; BP diastolic 67–132; PULSE 54–130; RESP 10–34; TEMP 36.4–36.7; O2SAT 88–100; BMI 35.2
--- NOTE | 2025-01-21 18:31 | CTR_ITS ---
PROCEDURE INFORMATION: Exam: CT Abdomen And Pelvis With Contrast Exam date and time: 01/21/2025 6:47 PM Age: 39 years old Clinical indication: Abdominal pain; Generalized; Additional info: Abdominal pain with bloody stools TECHNIQUE: Imaging protocol: Computed tomography of the abdomen and pelvis with contrast. Radiation optimization: All CT scans at this facility use at least one of these dose optimization techniques: automated exposure control; mA and/or kV adjustment per patient size (includes targeted exams where dose is matched to clinical indication); or iterative reconstruction. Contrast material: OMNIPAQUE 350; Contrast volume: 100 ml; Contrast route: INTRAVENOUS (IV); COMPARISON: MR abdomen wo/w con* [id number] 04/08/2024 7:55 AM RADIATION DOSE METRICS: Total DLP (mGy-cm): 1128.93 FINDINGS: Liver: There are multiple small 5 mm or less hypodensities scattered in both the right and left hepatic lobes which were also seen on MRI from March of 2024. These structures are too small to characterize on today's study but given chronicity and appearance on the prior MRI, are most likely incidental. Gallbladder and biliary ducts: Normal. No calcified stones. No ductal dilation. Pancreas: Normal. No ductal dilation. Spleen: Normal. No splenomegaly. Adrenal glands: Normal. No mass. Kidneys and ureters: Normal. No hydronephrosis. Stomach and bowel: Small bowel and colon are normal. Formed stool is present in the proximal colon. The distal half of the colon is completely empty. No fluid levels or abnormal inflammation. Appendix: The appendix is normal. Intraperitoneal space: No free fluid or free air. Vasculature: Unremarkable. No abdominal aortic aneurysm. Lymph nodes: Unremarkable. No enlarged lymph nodes. Urinary bladder: Unremarkable as visualized. Reproductive: Unremarkable as visualized. Bones/joints: Unremarkable. No acute fracture. Soft tissues: 2 cm noninflamed fatty umbilical hernia. CT/CT abdomen pelvis w con* [id number] IMPRESSION: 1. No acute abdominopelvic findings. In particular no significant colonic findings. 2. Other chronic and incidental findings as described
[2025-01-21 18:46] LABS: Basophils # 0.1 10^3/uL (0.0-0.1); Basophils % 0.8 %; Eosinophils # 0.3 10^3/uL (0.0-0.8); Eosinophils % 3.7 %; Lymphocytes # 2.4 10^3/uL (0.8-4.8); Lymphocytes % 30.9 %; Mean Corpuscular HGB Conc 27.9 g/dL (30-55); Mean Corpuscular Hemoglobin 19.1 pg (27-33); Mean Corpuscular Volume 68.4 fl (82-101); Monocytes # 0.7 10^3/uL (0.2-0.9); Monocytes % 9.2 %; Neutrophils # 4.21 10^3/uL (1.8-7.7); Neutrophils % 55.1 %; Nucleated Red Blood Cells % 0 %; Platelet Count 269 10^3/cmm (157-399); Red Blood Count 4.24 10^6/uL (3.85-5.65); Red Cell Distribution Width 16.8 % (12.1-15.1); White Blood Count 7.63 10^3/uL (3.29-11.43)
[2025-01-21] MEDS: iohexol 350 mg/mL 500 mL Btl (per mL) IV (18:50)
[2025-01-21] MEDS: sodium chloride 0.9% 500 ML IV (19:03)
[2025-01-21] MEDS: ondansetron 2 mg/ML SDV 2 mL 4 MG IVP (19:04)
[2025-01-21] MEDS: pantoprazole 40 mg SDV 80 MG IVP (19:09)
[2025-01-21 19:19] LABS: INR 0.97 (0.8-1.2)
[2025-01-21 19:20] LABS: Partial Thromboplastin Time 29.1 SECONDS (23.9-36.7)
--- NOTE | 2025-01-21 19:20 | W.ED.GIBLEED ---
HPI - GI Bleed General: Chief complaint: GI Bleed Stated complaint: abdominal pain Time Seen by Provider: 01/21/25 18:11 History of Present Illness: 39-year-old male presents to the ER chief complaint of having some bloody bowel movements have been ongoing for for some quite some time he reports having a known history of stomach ulcers as well as a reported internal hemorrhoids reports recent seen by primary care which he had a low hemoglobin 8.6 at in which they suggested come to the ER for further assessment management patient reports generalized abdominal discomfort he denies any other associated symptoms he reports lots of bleeding after wiping patient reports no other associated symptoms. Patient Dors is 6-8 bowel movements are quite grossly bloody reports no melanotic stools reports little bit of lower abdominal pain with no cramping patient reports no recent infections or illnesses or any previous abdominal surgeries. Associated symptoms: Reports abdominal pain; Denies chills, fever(s), headache(s), malaise, nausea, rash or vomiting Related Data Home Medications ?Medication ?Instructions ?Recorded ?Confirmed cetirizine 10 mg capsule (Zyrtec) 10 mg PO DAILY 10/09/19 06/30/24 montelukast 10 mg tablet 10 mg PO DAILY 10/09/19 06/30/24 (Singulair) omeprazole 40 mg capsule,delayed 40 mg PO DAILY 10/09/19 06/30/24 release fexofenadine 180 mg tablet 180 mg PO DAILY 06/30/24 06/30/24 propranolol 80 mg capsule,24 80 mg PO DAILY 06/30/24 06/30/24 hr,extended release Previous Rx's ?Medication ?Instructions ?Recorded Low profile custom molded insoles #1 ea 08/29/22 fast form ulnar gutter #1 ea 01/17/23 amlodipine 5 mg tablet 5 mg PO DAILY #30 tabs 06/30/24 Allergies Allergy/AdvReac Type Severity Reaction Status Date / Time bupropion (From Wellbutrin) Allergy ADR-Agitate Verified 01/21/25 18:20 d Review of Systems General: Reports: 10 or more systems reviewed and unremarkable except in HPI and below Const: Denies: fever(s), chills, fatigue or malaise Eyes: Denies: change in vision or blurry vision Card: Denies: chest pain or palpitations Resp: Denies: dyspnea or productive cough GI: Reports: abdominal pain, pain on defecation and hematochezia; Denies: nausea or vomiting : Denies: flank pain Musc: Denies: extremity pain or extremity swelling Skin/Breast: Denies: rash or pruritus Neuro: Denies: headache(s) Psych: Denies: anxiety or depression Andreas/Lymph: Denies: easy bleeding All/Imm: Denies: urticaria, throat swelling or facial swelling PFSH ED PFSH: Medical History Deafness Hypertension GERD (gastroesophageal reflux disease) Surgical History Status post colonoscopy (07/22/21) History of ankle surgery (3) bilateral S/P left knee arthroscopy July 2018 History of back surgery ablation of nerves in back L3-L5 History of esophagogastroduodenoscopy (EGD) (07/22/21) grade b espophagitis Family History Mother Anemia Arrhythmia Atrial fibrillation Pulmonary embolism Grandfather Congestive heart failure (CHF) Grandmother Congestive heart failure (CHF) TIA (transient ischemic attack) Father Congestive heart failure (CHF) Other CAD (coronary artery disease) Congenital heart disease Diabetes Hypertension Stroke Denies family history of Aneurysm Hyperthyroidism Hypothyroidism Sudden cardiac Chronic kidney disease (CKD) Carotid artery disease Cardiomyopathy Social History Smoking and tobacco/nicotine status: current every day tobacco/nicotine user Quit status (tobacco/nicotine): has quit using Year quit tobacco: 2007 Alcohol intake: current Alcohol intake frequency: few times a week Alcohol type: beer Substance/Drug Use: never Physical Exam Const: COMMON NORMALS: no acute distress, patient oriented x3 and healthy appearing HENMT: COMMON NORMALS: normocephalic and atraumatic HEAD & SCALP: normocephalic and atraumatic Eye: COMMON NORMALS: Equal, round and reactive pupils present and EOMs intact bilaterally PUPIL: Yes Equal, round and reactive pupils present Neck/C-Spine: COMMON NORMALS: full ROM, supple and no JVD Lymph: LYMPHATIC: no lymphadenopathy noted Chest: COMMONS NORMALS: normal inspection of the chest and normal palpation of entire chest wall Resp: COMMON NORMALS: normal respiratory effort, No retractions and clear to auscultation bilaterally EFFORT & INSPECTION: Yes able to speak in complete sentences and Yes symmetric chest movement AUSCULTATION: clear to auscultation bilaterally Cardio: COMMON NORMALS: no JVD, regular rate and regular rhythm RATE: regular rate RHYTHM: regular rhythm GI: COMMON NORMALS: Normal to inspection, nondistended, normoactive bowel sounds present and Soft to palpation; negative for non-tender (Mild tenderness appreciated in lower abdomen no guarding or rebound noted) INSPECTION: Yes normal to inspection PALPATION: Yes Soft to palpation : COMMON NORMALS: Yes no CVA tenderness BLADDER/KIDNEY EXAM: Yes no CVA tenderness Back/Pelvis: COMMON NORMALS: no CVA tenderness Extremity: COMMON NORMALS: normal to inspection and full ROM Neuro: COMMON NORMALS: patient oriented x3, CN's II-XII intact bilaterally, moves all extremities and no focal motor deficits Psych: COMMON NORMALS: mental status grossly normal, Normal thought process present, cooperative and normal affect THOUGHT PROCESS: Normal thought process present Skin: COMMON NORMALS: no rashes or lesions noted GENERAL SKIN EXAM: no rashes or lesions noted Course Vital Signs: Vital signs: Vital Signs Temperature 98.1 F 01/21/25 18:15 Pulse Rate 62 01/21/25 20:55 Respiratory Rate 16 01/21/25 20:55 Blood Pressure 142/83 01/21/25 20:55 Pulse Oximetry 99 01/21/25 20:55 MDM - GI Bleed Medical Decision Making Due to patient's symptoms and condition IV will be established basic lab work imaging will be obtained we will continue to follow. Discussed patient's case with Dr. Masters our general surgeon in which recommended patient overnight to the hospital service with him to consult due to having lower GI bleeding 8.5 g hemoglobin drop from the office discussed patient case with Dr. Capps admitted to place the patient observation overnight the patient is agreeable to observation status at this time. Lab Data 01/21/25 18:36 01/21/25 18:36 Radiology Impressions Abdomen/Pelvis CT 01/21/25 18:31 IMPRESSION: 1. No acute abdominopelvic findings. In particular no significant colonic findings. 2. Other chronic and incidental findings as described Laboratory Results WBC 7.63 10^3/uL (3.29-11.43) 01/21/25 18:36 WBC Cancelled 01/21/25 18:36 Corrected WBC Cancelled 01/21/25 18:36 RBC 4.24 10^6/uL (3.85-5.65) 01/21/25 18:36 RBC Cancelled 01/21/25 18:36 Hgb 8.10 g/dL (11.27-16.99) L 01/21/25 18:36 Hgb Cancelled 01/21/25 18:36 Hct 29.0 % (37-53) L 01/21/25 18:36 Hct Cancelled 01/21/25 18:36 MCV 68.4 fl (82-101) L 01/21/25 18:36 MCV Cancelled 01/21/25 18:36 MCH 19.1 pg (27-33) L 01/21/25 18:36 MCH Cancelled 01/21/25 18:36 MCHC 27.9 g/dL (30-55) L 01/21/25 18:36 MCHC Cancelled 01/21/25 18:36 RDW 16.8 % (12.1-15.1) H 01/21/25 18:36 RDW Cancelled 01/21/25 18:36 Plt Count 269 10^3/cmm (157-399) 01/21/25 18:36 Plt Count Cancelled 01/21/25 18:36 MPV 11.0 fL (7.4-10.4) H 01/21/25 18:36 MPV Cancelled 01/21/25 18:36 Gran % Cancelled 01/21/25 18:36 Neut % (Auto) 55.1 % 01/21/25 18:36 Neut % (Auto) Cancelled 01/21/25 18:36 Lymph % (Auto) 30.9 % 01/21/25 18:36 Lymph % (Auto) Cancelled 01/21/25 18:36 [place] % (Auto) 9.2 % 01/21/25 18:36 [place] % (Auto) Cancelled 01/21/25 18:36 Eos % (Auto) 3.7 % 01/21/25 18:36 Eos % (Auto) Cancelled 01/21/25 18:36 Baso % (Auto) 0.8 % 01/21/25 18:36 Baso % (Auto) Cancelled 01/21/25 18:36 Neut # (Auto) 4.21 10^3/uL (1.8-7.7) 01/21/25 18:36 Neut # (Auto) Cancelled 01/21/25 18:36 Lymph # (Auto) 2.4 10^3/uL (0.8-4.8) 01/21/25 18:36 Lymph # (Auto) Cancelled 01/21/25 18:36 [place] # (Auto) 0.7 10^3/uL (0.2-0.9) 01/21/25 18:36 [place] # (Auto) Cancelled 01/21/25 18:36 Eos # (Auto) 0.3 10^3/uL (0.0-0.8) 01/21/25 18:36 Eos # (Auto) Cancelled 01/21/25 18:36 Baso # (Auto) 0.1 10^3/uL (0.0-0.1) 01/21/25 18:36 Baso # (Auto) Cancelled 01/21/25 18:36 Absolute Gran (auto) Cancelled 01/21/25 18:36 Nucleated RBC % (auto) 0 % 01/21/25 18:36 Nucleated RBC % (auto) Cancelled 01/21/25 18:36 Nucleated RBCs # 0.0 /100WBC 01/21/25 18:36 Nucleated RBCs # Cancelled 01/21/25 18:36 PT 13.60 SECONDS (12.1-14.9) 01/21/25 18:36 INR 0.97 (0.8-1.2) 01/21/25 18:36 APTT 29.1 SECONDS (23.9-36.7) 01/21/25 18:36 Sodium 140 mmol/L (136-145) 01/21/25 18:36 Potassium 3.6 mmol/L (3.5-5.1) 01/21/25 18:36 Chloride 104 mmol/L (98-107) 01/21/25 18:36 Carbon Dioxide 23 mmol/L (22-29) 01/21/25 18:36 Anion Gap 16.6 (5-19) 01/21/25 18:36 BUN 15 mg/dL (6-20) 01/21/25 18:36 Creatinine 1.0 mg/dL (0.7-1.2) 01/21/25 18:36 GFR Calculation 83.6 mL/min (90-130) L 01/21/25 18:36 Glucose 114 mg/dL (65-115) 01/21/25 18:36 Calculated Osmolality 292 mOsm/kg (285-295) 01/21/25 18:36 Calcium 9.3 mg/dL (8.5-10.5) 01/21/25 18:36 Total Bilirubin 0.2 mg/dL (0.15-1.2) 01/21/25 18:36 AST 17 U/L (0-40) 01/21/25 18:36 ALT 27 U/L (0-41) 01/21/25 18:36 Alkaline Phosphatase 72 U/L (40-130) 01/21/25 18:36 C-Reactive Protein 5.3 mg/L (0.0-4.9) H 01/21/25 18:36 Total Protein 7.3 g/dL (6.6-8.7) 01/21/25 18:36 Albumin 4.4 g/dL (3.5-5.2) 01/21/25 18:36 Globulin 2.9 g/dL (1.3-4.6) 01/21/25 18:36 Lipase 31 U/L (13-60) 01/21/25 18:36 Urine Color Yellow (Yellow) 01/21/25 19:30 Urine Appearance Clear (CLEAR) 01/21/25 19:30 Urine pH 7.5 (5-7) 01/21/25 19:30 Ur Specific [place] 1.070 (1.005-1.030) H 01/21/25 19:30 Urine Protein Negative (Negative) 01/21/25 19:30 Urine Glucose (UA) Negative (Normal) 01/21/25 19:30 Urine Ketones Negative (Negative) 01/21/25 19: Urine Blood Negative (Negative) 01/21/25 19:30 Urine Nitrate Negative (Negative) 01/21/25 19:30 Urine Bilirubin Negative (Negative) 01/21/25 19:30 Urine Urobilinogen 1.0 mg/dL (Negative) 01/21/25 19:30 Ur Leukocyte Esterase Negative (Negative) 01/21/25 19:30 Urine RBC 0-2 /hpf (0-2) 01/21/25 19:30 Urine WBC 0-5 /hpf (0-5) 01/21/25 19:30 Ur Squamous Epith Cells 0-5 /hpf (0-5) 01/21/25 19:30 Amorphous Sediment Not Reportable 01/21/25 19:30 Urine Bacteria None seen /hpf (NONE) 01/21/25 19:30 Hyaline Casts 0-4 /lpf H 01/21/25 19:30 Urine Opiates Screen Negative ng/mL (Negative) 01/21/25 19:30 Ur Barbiturates Screen Negative ng/mL (Negative) 01/21/25 19:30 Ur Phencyclidine Scrn Negative ng/mL (Negative) 01/21/25 19:30 Ur Amphetamines Screen Negative ng/mL (Negative) 01/21/25 19:30 U Benzodiazepines Scrn Negative ng/mL (Negative) 01/21/25 19:30 Urine Cocaine Screen Negative ng/mL (Negative) 01/21/25 19:30 U Marijuana (THC) Screen Positive ng/mL (Negative) H 01/21/25 19:30 Blood Type O Positive 01/21/25 18:36 Rho(D) Type Rh positive 01/21/25 18:36 Antibody Screen Negative 01/21/25 18:36 XR interpretation done by ED provider, pending radiology final review Discharge Plan Discharge Patient Disposition: Placed in Observation Clinical Impression: Acute lower gastrointestinal bleeding, Bleeding internal hemorrhoids, Anemia Coding Level of Care Code 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
[2025-01-21 19:28] LABS: Alanine Aminotransferase 27 U/L (0-41); Albumin Level 4.4 g/dL (3.5-5.2); Alkaline Phosphatase 72 U/L (40-130); Anion Gap 16.6 (5-19); Aspartate Amino Transferase 17 U/L (0-40); Blood Urea Nitrogen 15 mg/dL (6-20); C Reactive Protein 5.3 mg/L (0.0-4.9); Calcium 9.3 mg/dL (8.5-10.5); Carbon Dioxide 23 mmol/L (22-29); Chloride 104 mmol/L (98-107); Creatinine Clr Calc Pharmacy 132.7893; Globulin 2.9 g/dL (1.3-4.6); Glomerular Filtration Rate 83.6 mL/min (90-130); Glucose 114 mg/dL (65-115); Lipase 31 U/L (13-60); Osmolality Calculated 292 mOsm/kg (285-295); Potassium 3.6 mmol/L (3.5-5.1); Sodium 140 mmol/L (136-145); Total Bilirubin 0.2 mg/dL (0.15-1.2); Total Protein 7.3 g/dL (6.6-8.7)
[2025-01-21 19:49] LABS: Bilirubin Urine Negative (Negative); Blood Urine Negative (Negative); Glucose Urine UA Negative (Normal); Ketones Urine Negative (Negative); Leukocyte Esterase Urine Negative (Negative); Nitrate Urine Negative (Negative); Protein Urine Negative (Negative); Urine Appearance Clear (CLEAR); Urine Color Yellow (Yellow); pH Urine 7.5 (5-7)
[2025-01-21 19:51] LABS: Add Urine Microscopic? YES; Bacteria Urine None Seen /hpf; Hyaline Casts Urine 0-4 /lpf; RBC Urine 0-2 /hpf (0-2); Squamous Epithelial Cell Urine 0-5 /hpf (0-5); WBC Urine 0-5 /hpf (0-5)
[2025-01-21 20:32] LABS: Amphetamines Screen Urine Negative (Negative); Barbiturates Screen Urine Negative (Negative); Benzodiazepines Screen Urine Negative (Negative); Cocaine Screen Urine Negative (Negative); Opiate Screen Urine Negative (Negative); PCP Screen Urine Negative (Negative); THC Screen Urine Positive (Negative)
--- NOTE | 2025-01-21 21:02 | PM.CONSULT ---
Providers/Reason For Consult Consulting Physician/Specialty*: General Surgery Reason for Consult*: GI bleeding Primary Care Provider: ZINA Wylie History of Present Illness History of Present Illness Bishop Robin is a 39 year old male Who presents to the hospital after several months of GI bleeding characterized by bright blood with the stool. He went for an annual physical today and his hemoglobin was low and therefore he was sent to the ER. Patient states that he had a EGD colon about 2 years ago and they did found a hemorrhoid but other than that no other significant reason for bleeding. In the hospital today he did a CAT scan that was negative for pathology and she had a Hemoccult test that was microscopically positive for blood Review of Systems General: Reports: 10 or more systems reviewed and unremarkable except in HPI and below Medications/Allergies Home Medications ?Medication ?Instructions ?Recorded ?Confirmed ?Last Taken ?Type cetirizine 10 mg capsule (Zyrtec) 10 mg PO DAILY 10/09/19 06/30/24 02/15/22 History montelukast 10 mg tablet 10 mg PO DAILY 10/09/19 06/30/24 02/15/22 History (Singulair) omeprazole 40 mg capsule,delayed 40 mg PO DAILY 10/09/19 06/30/24 02/15/22 History release Low profile custom molded insoles #1 ea 08/29/22 06/30/24 Unknown Rx fast form ulnar gutter #1 ea 01/17/23 06/30/24 Unknown Rx amlodipine 5 mg tablet 5 mg PO DAILY #30 tabs 06/30/24 06/30/24 Unknown Rx fexofenadine 180 mg tablet 180 mg PO DAILY 06/30/24 06/30/24 Unknown History propranolol 80 mg capsule,24 80 mg PO DAILY 06/30/24 06/30/24 Unknown History hr,extended release Allergies Allergy/AdvReac Type Severity Reaction Status Date / Time bupropion (From Wellbutrin) Allergy ADR-Agitate Verified 01/21/25 18:20 d PFSH Acute PFSH: Medical History Deafness Hypertension GERD (gastroesophageal reflux disease) Surgical History Status post colonoscopy (07/22/21) History of ankle surgery (3) bilateral S/P left knee arthroscopy July 2018 History of back surgery ablation of nerves in back L3-L5 History of esophagogastroduodenoscopy (EGD) (07/22/21) grade b espophagitis Family History Mother Anemia Arrhythmia Atrial fibrillation Pulmonary embolism Grandfather Congestive heart failure (CHF) Grandmother Congestive heart failure (CHF) TIA (transient ischemic attack) Father Congestive heart failure (CHF) Other CAD (coronary artery disease) Congenital heart disease Diabetes Hypertension Stroke Denies family history of Aneurysm Hyperthyroidism Hypothyroidism Sudden cardiac Chronic kidney disease (CKD) Carotid artery disease Cardiomyopathy Social History Smoking and tobacco/nicotine status: current every day tobacco/nicotine user Quit status (tobacco/nicotine): has quit using Year quit tobacco: 2007 Alcohol intake: current Alcohol intake frequency: few times a week Alcohol type: beer Substance/Drug Use: never Vitals/I&O/Wt Last Vital Signs Temp 98.1 F 01/21/25 18:15 Pulse 62 01/21/25 20:55 Resp 16 01/21/25 20:55 BP 142/83 01/21/25 20:55 Pulse Ox 99 01/21/25 20:55 Weight last 48 hrs Weight 260 lb Physical Exam Narrative: General : Patient is well developed , no acute distress, oriented x3 Head : Normal cephalic, a-traumatic. Nose : Mucous membranes are without erythema. Lungs : Equal chest rise bilaterally, no use of accessory muscles, trachea is midline. CV : Rate and rhythm are normal. Abdomen : Soft, ND, NT, no g/r/m, Digital rectal examination was done there is evidence of internal hemorrhoid but there is no blood residue in the glove. Extremities : No edema. Upper extremities are normal bilaterally. Back : non-tender to palpation, no CVA tenderness. Data 01/21/25 18:36 01/21/25 18:36 A&P Assessment and plan (1) GERD (gastroesophageal reflux disease): (2) GI bleeding: Plan Patient currently is stable, from the general surgery standpoint think he will probably benefit from additional work With upper and lower endoscopy to identify the possible source of GI bleeding. In the case of a negative upper and lower endoscopy and only finding of hemorrhoids I might decide to offer him hemorrhoidectomy to prevent further bleeding in the future. Since the patient is a stable no significant abnormality numbish compromise no significant abdominal pain normal CT scan of the abdomen and pelvis if the patient decides not to stay in the hospital for additional workup I am agreeable to proceed with outpatient workup as this appears to be a chronic problem rather than acute. If the patient decides to stay in the hospital we will proceed with bowel prep tomorrow with anticipation for possible EGD colonoscopy on Sunday. Additional steps will be decided depending on the findings of the EGD and colonoscopy. Additional management by primary team is appreciated. General surgery will continue to follow PDMP PDMP Reviewed: Not Reviewed Coding Level of Care Code Acute Code for Chg Fwd Diagnoses GERD (gastroesophageal reflux disease) K21.9 GI bleeding K92.2
--- NOTE | 2025-01-21 21:23 | PM.HP ---
Providers/Chief Complaint Primary Care Provider: ZINA Wylie Chief Complaint: abdominal pain History of Present Illness Bishop Robin is a 39 year old male with a past medical history significant for internal hemorrhoids, gastritis, sleep apnea, dyslipidemia, depression, chronic pain, hypertension, PTSD, GERD, and multiple other comorbidities who presents to the emergency department with abnormal labs. Patient reports his hemoglobin was checked at the [facility] today where it was found to be 8.6. Patient endorses bloody bowel movements for the past month. He describes his bowel movements as often with copious blood. Denies any melanotic stools. Endorses generalized abdominal discomfort at baseline which he attributes to liver lesions. Patient has a history of hematochezia. He underwent EGD and colonoscopy in July 2021 revealing internal hemorrhoids which was felt to be the source of his bleed at that time. Patient denies fevers, chills, nausea or emesis. Denies alleviating or aggravating factors to his symptoms. Labs in the emergency department confirmed microcytic anemia with MCV 68.4 and hemoglobin 8.1 g/dL. Platelets within normal limits. INR normal. BUN normal at 15 mg/dL. Patient evaluated by general surgery in the emergency department recommending endoscopy for further evaluation. Review of Systems Narrative: A complete review of systems was obtained and is negative except as stated in HPI. Medications/Allergies Home Medications ?Medication ?Instructions ?Recorded ?Confirmed ?Last Taken ?Type cetirizine 10 mg capsule (Zyrtec) 10 mg PO DAILY 10/09/19 06/30/24 02/15/22 History montelukast 10 mg tablet 10 mg PO DAILY 10/09/19 06/30/24 02/15/22 History (Singulair) omeprazole 40 mg capsule,delayed 40 mg PO DAILY 10/09/19 06/30/24 02/15/22 History release Low profile custom molded insoles #1 ea 08/29/22 06/30/24 Unknown Rx fast form ulnar gutter #1 ea 01/17/23 06/30/24 Unknown Rx amlodipine 5 mg tablet 5 mg PO DAILY #30 tabs 06/30/24 06/30/24 Unknown Rx fexofenadine 180 mg tablet 180 mg PO DAILY 06/30/24 06/30/24 Unknown History propranolol 80 mg capsule,24 80 mg PO DAILY 06/30/24 06/30/24 Unknown History hr,extended release Allergies Allergy/AdvReac Type Severity Reaction Status Date / Time bupropion (From Wellbutrin) Allergy ADR-Agitate Verified 01/21/25 18:20 d PFSH Acute PFSH: Medical History Deafness Hypertension GERD (gastroesophageal reflux disease) Surgical History Status post colonoscopy (07/22/21) History of ankle surgery (3) bilateral S/P left knee arthroscopy July 2018 History of back surgery ablation of nerves in back L3-L5 History of esophagogastroduodenoscopy (EGD) (07/22/21) grade b espophagitis Family History Mother Anemia Arrhythmia Atrial fibrillation Pulmonary embolism Grandfather Congestive heart failure (CHF) Grandmother Congestive heart failure (CHF) TIA (transient ischemic attack) Father Congestive heart failure (CHF) Other CAD (coronary artery disease) Congenital heart disease Diabetes Hypertension Stroke Denies family history of Aneurysm Hyperthyroidism Hypothyroidism Sudden cardiac Chronic kidney disease (CKD) Carotid artery disease Cardiomyopathy Social History Smoking and tobacco/nicotine status: current every day tobacco/nicotine user Quit status (tobacco/nicotine): has quit using Year quit tobacco: 2007 Alcohol intake: current Alcohol intake frequency: few times a week Alcohol type: beer Substance/Drug Use: never Vitals/I&O/Wt Last Vital Signs Temp 98.1 F 01/21/25 18:15 Pulse 62 01/21/25 20:55 Resp 16 01/21/25 20:55 BP 142/83 01/21/25 20:55 Pulse Ox 99 01/21/25 20:55 Weight last 48 hrs Weight 117.934 kg Physical Exam Narrative: General: Patient is awake and alert. Pleasant. Head: Normocephalic. Atraumatic. EOM intact. Slightly pale mucous membranes. Neck: No JVD. Cardiovascular: RRR. No gallops. No murmurs. No peripheral edema. Lungs: Clear to auscultation, no use of accessory muscles, no crackles or wheezes. Skin: No jaundice. No rashes. Abdomen: Normal bowel sounds, abdomen soft and nontender. Extremities: No cyanosis or clubbing. Musculoskeletal: No swollen or erythematous joints. Neurological: Moves all 4 extremities. No myoclonus. Data 01/21/25 18:36 01/21/25 18:36 A&P Assessment and plan (1) Anemia: (2) Bleeding internal hemorrhoids: (3) Acute lower gastrointestinal bleeding: (4) GERD (gastroesophageal reflux disease): (5) Dyslipidemia: (6) Benign hypertension: (7) Major depressive disorder: (8) PTSD (post-traumatic stress disorder): Plan Acute GI bleed with hematochezia, suspected LGIB Acute blood loss anemia Suspected iron deficiency History of internal hemorrhoids - Backorder iron labs - General Surgery consulted - Plan to start bowel prep tomorrow per general surgery recommendations - Clear liquid diet for tonight - Status post IV PPI in ED, will continue IV PPI for now although bleed is likely lower - Repeat labs in a.m. GERD - PPI Hypertension - Continue home blood pressure regiment History of depression History of PTSD - Continue home meds DVT ppx: SCD Code: Full PDMP PDMP Reviewed: Not Reviewed Attestations Medical Necessity Statement*: Patient presents with hemoglobin with half a gram drop as compared to clinics hemoglobin earlier today in the setting of GI bleed with expected hospitalization not to cross 2 midnights for IV PPI, serial hemoglobins, and general surgery evaluation with likely endoscopy. Coding Level of Care Code Acute Code for Chg Fwd Diagnoses Anemia D64.9 Bleeding internal hemorrhoids K64.8 Acute lower gastrointestinal bleeding K92.2 GERD (gastroesophageal reflux disease) K21.9 Dyslipidemia E78.5 Benign hypertension I10 Major depressive disorder F32.9 PTSD (post-traumatic stress disorder) F43.10
--- NOTE | 2025-01-21 21:33 | PC.NURSE ---
REPORT CALLED AT 2132
[2025-01-21] MEDS: dextrose 5%-sod chloride 0.45% 1,000 ML 125 ML IV (23:08)
[2025-01-21 23:36] LABS: Ferritin 8 ng/mL (30-400); Iron 14 ug/dL (59-158); Percent Saturation 2.8 % (20-50); Total Iron Binding Capacity 490 mcg/dl; Unsaturated Iron Binding 476 ug/dL (112-347)
[2025-01-22] VITALS (8 sets, daily range): BP systolic 122–176; BP diastolic 72–98; PULSE 54–79; RESP 15–18; TEMP 36.4–36.9; O2SAT 94–99
[2025-01-22] MEDS: potassium chloride ER 20 mEq Tablet 40 MEQ PO (01:20)
[2025-01-22 05:41] LABS: Basophils % 0.7 %; Eosinophils # 0.3 10^3/uL (0.0-0.8); Eosinophils % 5.4 %; Hematocrit 28.9 % (37-53); Lymphocytes # 1.9 10^3/uL (0.8-4.8); Lymphocytes % 33.9 %; Mean Corpuscular Hemoglobin 18.8 pg (27-33); Mean Corpuscular Volume 69.6 fl (82-101); Mean Platelet Volume 11.5 fL (7.4-10.4); Monocytes # 0.5 10^3/uL (0.2-0.9); Monocytes % 8.4 %; Neutrophils # 2.86 10^3/uL (1.8-7.7); Neutrophils % 51.4 %; Nucleated Red Blood Cells % 0 %; Platelet Count 230 10^3/cmm (157-399); Red Blood Count 4.15 10^6/uL (3.85-5.65); Red Cell Distribution Width 16.8 % (12.1-15.1); White Blood Count 5.57 10^3/uL (3.29-11.43)
[2025-01-22 06:02] LABS: Anion Gap 15.4 (5-19); Blood Urea Nitrogen 10 mg/dL (6-20); Calcium 8.8 mg/dL (8.5-10.5); Carbon Dioxide 23 mmol/L (22-29); Chloride 108 mmol/L (98-107); Creatinine Clr Calc Pharmacy 149.3141; Glomerular Filtration Rate 94.4 mL/min (90-130); Glucose 116 mg/dL (65-115); Osmolality Calculated 294 mOsm/kg (285-295); Potassium 4.4 mmol/L (3.5-5.1); Sodium 142 mmol/L (136-145)
[2025-01-22] MEDS: pantoprazole 40 mg SDV IVP ×2 (06:20→18:18)
[2025-01-22] MEDS: dextrose 5%-sod chloride 0.45% 1,000 ML 125 ML IV ×3 (06:20→22:12)
--- NOTE | 2025-01-22 06:58 | P.PN_ITS ---
Subjective 2 Subjective: Excellent progression over the last 24 hours, no reported additional GI bleeding. Plan is for bowel prep today in anticipation for endoscopy tomorrow Vitals/I&O/Wt Last Vital Signs Temp 97.7 F 01/22/25 04:00 Pulse 54 L 01/22/25 06:00 Resp 18 01/22/25 04:00 BP 122/72 01/22/25 04:00 Pulse Ox 96 01/22/25 04:00 O2 Del Method Room Air 01/22/25 04:00 01/21/25 01/21/25 01/22/25 14:59 22:59 06:59 Intake Total 500 / 500 1400 / 1900 Balance 500 / 500 1400 / 1900 Weight last 48 hrs Weight 266 lb 3.2 oz Weight 260 lb Weight 260 lb Physical Exam 2 GI: OTHER: Abdomen soft nontender nondistended Data 01/22/25 05:23 01/22/25 05:23 Micro: Microbiology 01/21/25 20:10 Occult Blood (FIT) - Final Stool - Stool Aspirate A&P Assessment and plan (1) Acute lower gastrointestinal bleeding: Plan Plan is for EGD and colonoscopy tomorrow. Patient will receive bowel prep today he will remain on clear liquid diet today and will be n.p.o. after midnight. He shows understanding. PDMP PDMP Reviewed: Not Reviewed Attestations 2 Medical Necessity Statement*: Per medical team Coding Level of Care Code Acute Code for Chg Fwd Diagnoses Acute lower gastrointestinal bleeding K92.2
--- NOTE | 2025-01-22 10:10 | PC.CHAP ---
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 [] Patient/Family/Request visit [] Outpatient visit [] Follow-up visit [] Physician referral [] Code/Alert [x] Routine visit [] Staff referral [] Actively dying [] Patient sleeping [] Family support [] [] Out of room [] Palliative care [] [] Receiving care in room [] Pre-surgical visit [] Trauma [] Long length of stay [] ICU visit [] Other: Relational/Emotional Strength [] Patient feels connected with others/family/visitors/staff [] Distress [] Loneliness/isolation [] Abandonment Spirituality of Patient [x] Person of Angélica [] Attends Synagogue of their Angélica [x] Believes in Prayer [] Reads Bible or Mandaeism materials [] There are Spiritual issues to be addressed Marketing Team Lead Interventions [x] Prayer [x] Active listening [] Non-anxious presence [] Spiritual/emotional support [] Crisis/trauma care [] Spiritual counseling [] Bereavement support [] Provided bereavement packet [x] Provided Bible/devotional materials [] Provided toy/stuffed animal, coloring book to patient or family member [] Provided Communion [] Anointing/Nicollet [] Salvation [x] Completed spiritual assessment [] Other: Impact on Illness or Injury [] Angry [] Fearful [] Anxious [] Often cries [] Exhaustion [] Unable to work [] Unable to attend anabaptism [] Unable to walk/stand [] Unable to read [] Unable to drive [] Unable to eat/drink [] Unable to sleep [] Unable to be with family [] Patient intubated [] Other: Summary Time spent with patient 5 min
[2025-01-22] MEDS: magnesium citrate Btl 296 mL PO ×2 (12:03→19:44)
--- NOTE | 2025-01-22 13:55 | P.PN_ITS ---
Subjective 2 Subjective: Seen today. Patient has not had any other bloody bowel movements since being admitted to the hospital. Blood pressure slightly elevated this morning. He has not taken his home blood pressure medication. Iron studies reviewed, iron 14, percent saturation 2.8, ferritin 8. Vitals/I&O/Wt Last Vital Signs Temp 97.5 F L 01/22/25 11:16 Pulse 68 01/22/25 11:16 Resp 16 01/22/25 11:16 BP 176/91 01/22/25 11:16 Pulse Ox 98 01/22/25 11:16 O2 Del Method Room Air 01/22/25 11:16 01/21/25 01/22/25 01/22/25 22:59 06:59 14:59 Intake Total 500 / 500 1400 / 1900 600 / 600 Balance 500 / 500 1400 / 1900 600 / 600 Weight last 48 hrs Weight 120.746 kg Weight 117.934 kg Weight 117.934 kg Physical Exam 2 Narrative: General: Patient is awake and alert. Pleasant. Cardiovascular: RRR. No murmurs. No peripheral edema. Lungs: Clear to auscultation, no use of accessory muscles, no crackles or wheezes. Abdomen: Normal bowel sounds, abdomen soft and nontender. Extremities: No cyanosis or clubbing. Data 01/22/25 05:23 01/22/25 05:23 Micro: Microbiology 01/21/25 20:10 Occult Blood (FIT) - Final Stool - Stool Aspirate A&P Assessment and plan (1) Anemia: (2) Bleeding internal hemorrhoids: (3) Acute lower gastrointestinal bleeding: (4) GERD (gastroesophageal reflux disease): (5) Dyslipidemia: (6) Benign hypertension: (7) Major depressive disorder: (8) PTSD (post-traumatic stress disorder): Plan Acute GI bleed with hematochezia, suspected LGIB Acute blood loss anemia Suspected iron deficiency History of internal hemorrhoids - Backorder iron labs - General Surgery consulted - Plan to start bowel prep tomorrow per general surgery recommendations - Clear liquid diet for tonight - Status post IV PPI in ED, will continue IV PPI for now although bleed is likely lower - Repeat labs in a.m. GERD - PPI Hypertension - Continue home blood pressure regiment History of depression History of PTSD - Continue home meds DVT ppx: SCD Code: Full 01/22/2025 Restart home medication propranolol sertraline losartan and amlodipine. Blood pressure 176/91 this morning. Hold off on home omeprazole. Protonix 40 IV twice daily on board Iron studies indicate severe iron deficiency anemia with RDW being elevated as well. Ferritin is 8 iron 14% saturation 2.8. Order IV iron sucrose 200 daily x 3 days. Continue clear liquid diet for bowel prep as per general surgery recommendations. Hydralazine 5 IV x 1. PDMP PDMP Reviewed: Not Reviewed Attestations 2 Medical Necessity Statement*: Patient presents with hemoglobin with half a gram drop as compared to clinics hemoglobin earlier today in the setting of GI bleed with expected hospitalization not to cross 2 midnights for IV PPI, serial hemoglobins, and general surgery evaluation with likely endoscopy. Diagnoses Anemia D64.9 Bleeding internal hemorrhoids K64.8 Acute lower gastrointestinal bleeding K92.2 GERD (gastroesophageal reflux disease) K21.9 Dyslipidemia E78.5 Benign hypertension I10 Major depressive disorder F32.9 PTSD (post-traumatic stress disorder) F43.10
[2025-01-22] MEDS: bisacodyl 5 mg Tablet 10 MG PO (14:30)
[2025-01-22] MEDS: hyDRALAzine 20 mg/mL INJ 1 mL 5 MG IVP (14:30)
[2025-01-22] MEDS: iron sucrose 200 MG in sodium chloride 0.9% (100 ml) 100 ML 220 MG IV (14:32)
[2025-01-22 17:16] LABS: Basophils # 0.1 10^3/uL (0.0-0.1); Basophils % 0.8 %; Eosinophils # 0.3 10^3/uL (0.0-0.8); Eosinophils % 4.5 %; Hematocrit 29.4 % (37-53); Lymphocytes % 33.6 %; Mean Corpuscular HGB Conc 27.6 g/dL (30-55); Mean Corpuscular Volume 68.9 fl (82-101); Mean Platelet Volume 11.4 fL (7.4-10.4); Monocytes # 0.5 10^3/uL (0.2-0.9); Monocytes % 8.6 %; Neutrophils # 3.15 10^3/uL (1.8-7.7); Neutrophils % 52.3 %; Nucleated Red Blood Cells % 0 %; Platelet Count 264 10^3/cmm (157-399); Red Blood Count 4.27 10^6/uL (3.85-5.65); White Blood Count 6.02 10^3/uL (3.29-11.43)
[2025-01-22 20:44] LABS: Reticulocyte % 1.2 % (0.5-2.0)
[2025-01-22 20:56] LABS: Lactate Dehydrogenase 131 U/L (135-225)
[2025-01-23] VITALS (10 sets, daily range): BP systolic 125–157; BP diastolic 67–95; PULSE 69–104; RESP 15–18; TEMP 36.4–36.9; O2SAT 95–100
[2025-01-23 04:53] LABS: Basophils % 0.5 %; Eosinophils # 0.3 10^3/uL (0.0-0.8); Hematocrit 29.1 % (37-53); Lymphocytes # 1.8 10^3/uL (0.8-4.8); Lymphocytes % 26.3 %; Mean Corpuscular HGB Conc 28.5 g/dL (30-55); Mean Corpuscular Hemoglobin 19.5 pg (27-33); Mean Corpuscular Volume 68.3 fl (82-101); Mean Platelet Volume 10.9 fL (7.4-10.4); Monocytes # 0.6 10^3/uL (0.2-0.9); Monocytes % 8.9 %; Neutrophils # 3.93 10^3/uL (1.8-7.7); Nucleated Red Blood Cells % 0 %; Platelet Count 259 10^3/cmm (157-399); Red Blood Count 4.26 10^6/uL (3.85-5.65); White Blood Count 6.65 10^3/uL (3.29-11.43)
[2025-01-23] MEDS: dextrose 5%-sod chloride 0.45% 1,000 ML 125 ML IV (05:12)
[2025-01-23 05:41] LABS: Anion Gap 13.9 (5-19); Blood Urea Nitrogen 5 mg/dL (6-20); Calcium 9.2 mg/dL (8.5-10.5); Carbon Dioxide 24 mmol/L (22-29); Chloride 108 mmol/L (98-107); Creatinine Clr Calc Pharmacy 147.7149; Glomerular Filtration Rate 94.4 mL/min (90-130); Glucose 115 mg/dL (65-115); Magnesium 2.3 mg/dL (1.7-2.3); Osmolality Calculated 292 mOsm/kg (285-295); Potassium 3.9 mmol/L (3.5-5.1); Sodium 142 mmol/L (136-145)
[2025-01-23] MEDS: pantoprazole 40 mg SDV IVP (06:02)
[2025-01-23] MEDS: sodium chloride 0.9% 1,000 ML 15 ML IV (06:46)
--- NOTE | 2025-01-23 06:53 | W.PM.OPSUD ---
Surgery/Procedure H&P Update DATE OF PROCEDURE: January 23, 2025 DATE H&P PERFORMED: 01/21/25 H&P UPDATE INFORMATION: I have reviewed H&P completed within last 30 days, I have examined patient prior to procedure, No changes to prior documentation, Changes to prior documentation as noted here and Risks and benefits of the procedure reviewed PLANNED PROCEDURE: Operation Date: 01/23/25 07:00 Proposed Procedures p EGD(Not Applicable) - Len Lopez MD s Colonoscopy(Not Applicable) - Len Lopez MD
--- NOTE | 2025-01-23 07:24 | P.PN_ITS ---
Subjective 2 Subjective: Open plan well, no significant bleeding. No abdominal pain. Vitals/I&O/Wt Last Vital Signs Temp 97.7 F 01/23/25 06:35 Pulse 73 01/23/25 06:35 Resp 18 01/23/25 06:35 BP 151/95 01/23/25 06:35 Pulse Ox 98 01/23/25 06:35 O2 Del Method Room Air 01/23/25 06:35 01/22/25 01/23/25 01/23/25 22:59 06:59 14:59 Intake Total 2070.417 / 3670.417 875 / 4545.417 Balance 2070.417 / 3670.417 875 / 4545.417 Weight last 48 hrs Weight 260 lb 9.6 oz Weight 266 lb 3.2 oz Weight 260 lb Weight 260 lb Physical Exam 2 GI: OTHER: Abdomen soft nontender nondistended Data 01/23/25 04:27 01/23/25 04:27 A&P Assessment and plan (1) Bleeding internal hemorrhoids: Plan EGD and colonoscopy done today. EGD shows evidence of a medium to large hiatal hernia, no other upper GI pathology. Colonoscopy is negative for pathology except for internal hemorrhoids. There is a small areas of ulceration and irritation in the hemorrhoids which indicate that this is most likely the source of bleeding. I will discuss possibility of hemorrhoidectomy as outpatient with the patient. He can be discharged from the general surgery standpoint he can have once a day laxative and fiber, increase fiber intake and increase water intake to prevent constipation. PDMP PDMP Reviewed: Not Reviewed Attestations 2 Medical Necessity Statement*: Per medical team Coding Level of Care Code Acute Code for Chg Fwd Diagnoses Bleeding internal hemorrhoids K64.8
--- NOTE | 2025-01-23 07:45 | ANES.PREANE2 ---
Pre-Anesthetic Assessment Height/Weight: Height 1.83 m Weight 118.206 kg Temp Pulse Resp BP Pulse Ox O2 Del Method O2 Flow Rate 97.8 F 98 18 141/94 96 Room Air 10 01/23/25 07:23 01/23/25 07:42 01/23/25 07:42 01/23/25 07:42 01/23/25 07:42 01/23/25 07:42 01/23/25 07:23 Operation Date: 01/23/25 07:00 Proposed Procedures p EGD(Not Applicable) - Len Lopez MD s Colonoscopy(Not Applicable) - Lne Lopez MD Last intake: Intake Last Liquid Date 01/22/25 Last Liquid Time 22:30 Last Solid Date 01/21/25 Last Solid Time 08:00 Social Alcohol and Tobacco 6 pack beer/day; daily cannabis use Airway Submandibular: within normal limits Cervical ROM: within normal limits Mallampati: Class II Pulmonary Sleep Apnea CV/HEM Hypertension GI Gastroesophageal Reflux Disease Metabolic Anemia Neuropsych Anxiety and Depression Anesthetic Plan ASA status: 3 Anesthesia: MAC Medications/Allergies Home Medications ?Medication ?Instructions ?Recorded ?Confirmed ?Last Taken ?Type amlodipine 5 mg tablet 5 mg PO DAILY 01/22/25 01/22/25 01/21/25 History fexofenadine 180 mg tablet 180 mg PO DAILY 01/22/25 01/22/25 01/21/25 History losartan 25 mg tablet 25 mg PO DAILY 01/22/25 01/22/25 01/21/25 History omeprazole 40 mg capsule,delayed 40 mg PO DAILY 01/22/25 01/22/25 01/21/25 History release propranolol 80 mg capsule,24 80 mg PO DAILY 01/22/25 01/22/25 01/21/25 History hr,extended release sertraline 100 mg tablet 100 mg PO DAILY 01/22/25 01/22/25 Unknown History Allergies Allergy/AdvReac Type Severity Reaction Status Date / Time bupropion (From Wellbutrin) Allergy ADR-Agitate Verified 01/21/25 18:20 d Current Medications Generic Name Dose Route Start Last Admin Trade Name Freq PRN Reason Stop Dose Admin Dextrose/Sodium Chloride 1,000 mls @ 125 mls/hr 01/21/25 22:23 01/23/25 05:12 Dextrose 5%-Sod Chloride 0.45% IV 125 mls/hr On Hold: 01/23/25 06:34 .Q8H HUDSON Administration Comment: Order held by Process Transfer Iron Sucrose 200 mg/ Sodium 110 mls @ 220 mls/hr 01/22/25 14:30 01/22/25 15:04 Chloride IV Infused On Hold: 01/23/25 06:34 Q24H HUDSON Infusion Comment: Order held by Process Transfer Sodium Chloride 1,000 mls @ 15 mls/hr 01/23/25 06:34 01/23/25 06:46 Sodium Chloride 0.9% IV 01/24/25 06:33 15 mls/hr .Q24H PRN Administration COLONOSCOPY FLUIDS Pantoprazole Sodium 40 mg 01/21/25 22:23 01/23/25 06:02 Pantoprazole 40 Mg Sdv IVP 40 mg On Hold: 01/23/25 06:34 Q12H HUDSON Administration Comment: Order held by Process Transfer [facility] Anesthesia Medical History Deafness Hypertension GERD (gastroesophageal reflux disease) Surgical History Status post colonoscopy (07/22/21) History of ankle surgery (3) bilateral S/P left knee arthroscopy July 2018 History of back surgery ablation of nerves in back L3-L5 History of esophagogastroduodenoscopy (EGD) (07/22/21) grade b espophagitis Family History Mother Anemia Arrhythmia Atrial fibrillation Pulmonary embolism Grandfather Congestive heart failure (CHF) Grandmother Congestive heart failure (CHF) TIA (transient ischemic attack) Father Congestive heart failure (CHF) Other CAD (coronary artery disease) Congenital heart disease Diabetes Hypertension Stroke Denies family history of Aneurysm Hyperthyroidism Hypothyroidism Sudden cardiac Chronic kidney disease (CKD) Carotid artery disease Cardiomyopathy Social History Smoking and tobacco/nicotine status: current every day tobacco/nicotine user Quit status (tobacco/nicotine): has quit using Year quit tobacco: 2007 Alcohol intake: current Alcohol intake frequency: few times a week Alcohol type: beer Substance/Drug Use: never Data Anesthesia 01/23/25 04:27 01/23/25 04:27 Short CBC 01/21/25 01/21/25 01/21/25 Range/Units 18:36 18:36 18:36 WBC 7.63 Cancelled (3.29-11.43) 10^3/uL Hgb 8.10 L Cancelled (11.27-16.99) g/dL Hct 29.0 L (37-53) % MCV (82-101) fl Plt Count (157-399) 10^3/cmm Neut % (Auto) % Neut # (Auto) (1.8-7.7) 10^3/uL 01/21/25 01/21/25 01/21/25 Range/Units 18:36 18:36 18:36 WBC (3.29-11.43) 10^3/uL Hgb (11.27-16.99) g/dL Hct Cancelled (37-53) % MCV 68.4 L Cancelled (82-101) fl Plt Count 269 Cancelled (157-399) 10^3/cmm Neut % (Auto) 55.1 % Neut # (Auto) (1.8-7.7) 10^3/uL 01/21/25 01/21/25 01/22/25 Range/Units 18:36 18:36 05:23 WBC 5.57 (3.29-11.43) 10^3/uL Hgb 7.80 L (11.27-16.99) g/dL Hct 28.9 L (37-53) % MCV 69.6 L (82-101) fl Plt Count 230 (157-399) 10^3/cmm Neut % (Auto) Cancelled 51.4 % Neut # (Auto) 4.21 Cancelled 2.86 (1.8-7.7) 10^3/uL 01/22/25 01/23/25 Range/Units 17:09 04:27 WBC 6.02 6.65 (3.29-11.43) 10^3/uL Hgb 8.10 L 8.30 L (11.27-16.99) g/dL Hct 29.4 L 29.1 L (37-53) % MCV 68.9 L 68.3 L (82-101) fl Plt Count 264 259 (157-399) 10^3/cmm Neut % (Auto) 52.3 59.0 % Neut # (Auto) 3.15 3.93 (1.8-7.7) 10^3/uL BMP 01/21/25 01/22/25 01/23/25 18:36 05:23 04:27 Sodium 140 142 142 Potassium 3.6 4.4 3.9 Chloride 104 108 H 108 H Carbon Dioxide 23 23 24 BUN 15 10 5 L Creatinine 1.0 0.9 0.9 Glucose 114 116 H 115 Calcium 9.3 8.8 9.2 Liver Function 01/21/25 Range/Units 18:36 Total Bilirubin 0.2 (0.15-1.2) mg/dL AST 17 (0-40) U/L ALT 27 (0-41) U/L Alkaline Phosphatase 72 (40-130) U/L Albumin 4.4 (3.5-5.2) g/dL Urine 01/21/25 Range/Units 19:30 Urine Color Yellow (Yellow) Urine Appearance Clear (CLEAR) Urine pH 7.5 (5-7) Ur Specific [place] 1.070 H (1.005-1.030) Urine Protein Negative (Negative) Urine Glucose (UA) Negative (Normal) Urine Ketones Negative (Negative) Urine Nitrate Negative (Negative) Urine Bilirubin Negative (Negative) Ur Leukocyte Esterase Negative (Negative) Urine RBC 0-2 (0-2) /hpf Urine WBC 0-5 (0-5) /hpf Blood Bank 01/21/25 18:36 Blood Type O Positive Rho(D) Type Rh positive Antibody Screen Negative Coags 01/21/25 18:36 PT 13.60 INR 0.97 APTT 29.1 C-Reactive Protein 5.3 H Cardiac Studies: Echocardiogram 07/21/24 Sestamibi Stress Test (Cardiology) 04/17/24 Cardiac Event Monitor 06/12/23
--- NOTE | 2025-01-23 07:47 | ANE.PACU2 ---
Inpatient post-anesthesia follow up: Airway intact: Yes Vital signs: Temperature 97.8 F Pulse Rate 98 Respiratory Rate 18 Blood Pressure 141/94 Pulse Oximetry 96 Oxygen Delivery Me thod Room Air Oxygen Flow Rate 10 Fraction of Inspir ed Oxygen Hydration adequate: Yes Nausea and vomiting: No Pain level: baseline Mental status: Baseline
--- NOTE | 2025-01-23 09:23 | PC.SOCIAL ---
Outpatient IV Per Dr. Orozco patient is needing iron infusion outpatient tomorrow. Neli, RN spoke w/ Maeve in GI lab and she reports she does not think she can get [facility] in [facility]. SELENA called and spoke to Carey keita/ [facility] and she reports that if she gets the order there is a possibility that auth can be obtained. Iron Infusion [facility] @ this time and updated Maeve w/ GI lab via email.
--- NOTE | 2025-01-23 10:37 | PC.SOCIAL ---
Outpatient IV Per Dr. Orozco during rounds, patient can get his infusion today and then 2nd infusion on Sunday. Updated Maeve in GI Lab via email and sent email to IV Infusion referral.
--- NOTE | 2025-01-23 11:14 | PC.SOCIAL ---
Outpatient IV Abxs SELENA spoke to Jane @ Infusion center and she reports that they have received the order and will call the patient once they have auth to arrange a time to come in for the appointment. Jane does request that order be updated w/ correct date for Sunday01/26/25. Order updated and emailed to infusion center and faxed to [facility] @ this time. SELENA called and updated Carey @ [facility] of new date for the infusion and she will update the auth. SELENA updated Dr. Orozco and she is agreeable to the plan and aware that patient will not get the infusion until the auth has been obtained.
[2025-01-23] MEDS: iron sucrose 200 MG in sodium chloride 0.9% (100 ml) 100 ML 220 MG IV (11:38)
[2025-01-23 12:30] LABS: LAB Peripheral Smear Sent for Review
--- NOTE | 2025-01-23 14:12 | PC.SOCIAL ---
DC Orders DC [facility] to [facility] @ [facility].
--- NOTE | 2025-01-23 14:39 | P.DS_ITS ---
Discharge Providers Date of Admission: 01/21/25 21:04 Date of Discharge: January 26, 2025 Attending Provider at Admission: Que Duvall MD Attending Provider at Discharge: Kimberly Orozco MD Primary Care Provider: ZINA Wylie Diagnoses at Discharge Discharge Diagnosis (1) Bleeding internal hemorrhoids: Status: Acute Reason for Visit Reason for Visit: abdominal pain Hospital Course Hospital Course Patient presented to the hospital with hematochezia found to have low hemoglobin. General surgery was consulted. Patient underwent EGD colonoscopy. Diagnosed with internal hemorrhoids. Will be discharged to follow-up with general surgery as an outpatient for hemorrhoidectomy as an outpatient. Iron study indicates severe iron deficiency anemia. Patient was set up with IV iron x 3 days. 2 doses were given during hospitalization and third doses to be given as an outpatient. maintenance engineer have set that up. Patient was discharged home on oral iron, folic acid, his regular home medications. Hemoglobin stable 8.3 a t discharge. Physical Exam Narrative: General: Patient is awake and alert. Pleasant. Cardiovascular: RRR. No murmurs. No peripheral edema. Lungs: Clear to auscultation, no use of accessory muscles, no crackles or wheezes. Abdomen: Normal bowel sounds, abdomen soft and nontender. Extremities: No cyanosis or clubbing. Discharge Data Studies Completed and Pending Completed Studies During Hospitalization Category Date Time Status CT abdomen pelvis w con* [id number] Stat Cat Scan 01/21/25 18:31 Completed Pending at discharge Category Date Time Status Pathology: Surgical [PTH] Routine Pth 01/23/25 07:21 Received Radiology Impressions Abdomen/Pelvis CT 01/21/25 18:31 IMPRESSION: 1. No acute abdominopelvic findings. In particular no significant colonic findings. 2. Other chronic and incidental findings as described Laboratory Results WBC 6.65 10^3/uL (3.29-11.43) 01/23/25 04:27 Corrected WBC Cancelled 01/21/25 18:36 RBC 4.26 10^6/uL (3.85-5.65) 01/23/25 04:27 Hgb 8.30 g/dL (11.27-16.99) L 01/23/25 04:27 Hct 29.1 % (37-53) L 01/23/25 04:27 MCV 68.3 fl (82-101) L 01/23/25 04:27 MCH 19.5 pg (27-33) L 01/23/25 04:27 MCHC 28.5 g/dL (30-55) L 01/23/25 04:27 RDW 17.0 % (12.1-15.1) H 01/23/25 04:27 Plt Count 259 10^3/cmm (157-399) 01/23/25 04:27 MPV 10.9 fL (7.4-10.4) H 01/23/25 04:27 Gran % Cancelled 01/21/25 18:36 Neut % (Auto) 59.0 % 01/23/25 04:27 Lymph % (Auto) 26.3 % 01/23/25 04:27 [place] % (Auto) 8.9 % 01/23/25 04:27 Eos % (Auto) 5.0 % 01/23/25 04:27 Baso % (Auto) 0.5 % 01/23/25 04:27 Reticulocyte % (Auto) 1.2 % (0.5-2.0) 01/22/25 17:09 Neut # (Auto) 3.93 10^3/uL (1.8-7.7) 01/23/25 04:27 Lymph # (Auto) 1.8 10^3/uL (0.8-4.8) 01/23/25 04:27 [place] # (Auto) 0.6 10^3/uL (0.2-0.9) 01/23/25 04:27 Eos # (Auto) 0.3 10^3/uL (0.0-0.8) 01/23/25 04:27 Baso # (Auto) 0.0 10^3/uL (0.0-0.1) 01/23/25 04:27 Absolute Gran (auto) Cancelled 01/21/25 18:36 Nucleated RBC % (auto) 0 % 01/23/25 04:27 Nucleated RBCs # 0.0 /100WBC 01/23/25 04:27 Peripher Smr Path Cons Sent for review 01/23/25 05:27 Haptoglobin 169.0 mg/L (30-200) 01/22/25 05:23 PT 13.60 SECONDS (12.1-14.9) 01/21/25 18:36 INR 0.97 (0.8-1.2) 01/21/25 18:36 APTT 29.1 SECONDS (23.9-36.7) 01/21/25 18:36 Sodium 142 mmol/L (136-145) 01/23/25 04:27 Potassium 3.9 mmol/L (3.5-5.1) 01/23/25 04:27 Chloride 108 mmol/L (98-107) H 01/23/25 04:27 Carbon Dioxide 24 mmol/L (22-29) 01/23/25 04:27 Anion Gap 13.9 (5-19) 01/23/25 04:27 BUN 5 mg/dL (6-20) L 01/23/25 04:27 Creatinine 0.9 mg/dL (0.7-1.2) 01/23/25 04:27 GFR Calculation 94.4 mL/min (90-130) 01/23/25 04:27 Glucose 115 mg/dL (65-115) 01/23/25 04:27 Calculated Osmolality 292 mOsm/kg (285-295) 01/23/25 04:27 Calcium 9.2 mg/dL (8.5-10.5) 01/23/25 04:27 Magnesium 2.3 mg/dL (1.7-2.3) 01/23/25 04:27 Iron 14 ug/dL (59-158) L 01/21/25 18:36 TIBC 490 mcg/dl 01/21/25 18:36 % Saturation 2.8 % (20-50) L 01/21/25 18:36 Unsat Iron Binding 476 ug/dL (112-347) H 01/21/25 18:36 Ferritin 8 ng/mL (30-400) L 01/21/25 18:36 Total Bilirubin 0.2 mg/dL (0.15-1.2) 01/21/25 18:36 AST 17 U/L (0-40) 01/21/25 18:36 ALT 27 U/L (0-41) 01/21/25 18:36 Alkaline Phosphatase 72 U/L (40-130) 01/21/25 18:36 Lactate Dehydrogenase 131 U/L (135-225) L 01/22/25 05:23 C-Reactive Protein 5.3 mg/L (0.0-4.9) H 01/21/25 18:36 Total Protein 7.3 g/dL (6.6-8.7) 01/21/25 18:36 Albumin 4.4 g/dL (3.5-5.2) 01/21/25 18:36 Globulin 2.9 g/dL (1.3-4.6) 01/21/25 18:36 Lipase 31 U/L (13-60) 01/21/25 18:36 Urine Color Yellow (Yellow) 01/21/25 19:30 Urine Appearance Clear (CLEAR) 01/21/25 19:30 Urine pH 7.5 (5-7) 01/21/25 19:30 Ur Specific [place] 1.070 (1.005-1.030) H 01/21/25 19:30 Urine Protein Negative (Negative) 01/21/25 19:30 Urine Glucose (UA) Negative (Normal) 01/21/25 19:30 Urine Ketones Negative (Negative) 01/21/25 19:30 Urine Blood Negative (Negative) 01/21/25 19:30 Urine Nitrate Negative (Negative) 01/21/25 19:30 Urine Bilirubin Negative (Negative) 01/21/25 19:30 Urine Urobilinogen 1.0 mg/dL (Negative) 01/21/25 19:30 Ur Leukocyte Esterase Negative (Negative) 01/21/25 19:30 Urine RBC 0-2 /hpf (0-2) 01/21/25 19:30 Urine WBC 0-5 /hpf (0-5) 01/21/25 19:30 Ur Squamous Epith Cells 0-5 /hpf (0-5) 01/21/25 19:30 Amorphous Sediment Not Reportable 01/21/25 19:30 Urine Bacteria None seen /hpf (NONE) 01/21/25 19:30 Hyaline Casts 0-4 /lpf H 01/21/25 19:30 Urine Opiates Screen Negative ng/mL (Negative) 01/21/25 19:30 Ur Barbiturates Screen Negative ng/mL (Negative) 01/21/25 19:30 Ur Phencyclidine Scrn Negative ng/mL (Negative) 01/21/25 19:30 Ur Amphetamines Screen Negative ng/mL (Negative) 01/21/25 19:30 U Benzodiazepines Scrn Negative ng/mL (Negative) 01/21/25 19:30 Urine Cocaine Screen Negative ng/mL (Negative) 01/21/25 19:30 U Marijuana (THC) Screen Positive ng/mL (Negative) H 01/21/25 19:30 Blood Type O Positive 01/21/25 18:36 Rho(D) Type Rh positive 01/21/25 18:36 Antibody Screen Negative 01/21/25 18:36 Vitals Last Vital Signs Temp 98.1 F 01/23/25 12:59 Pulse 75 01/23/25 12:59 Resp 15 01/23/25 12:59 BP 157/87 01/23/25 12:59 Pulse Ox 97 01/23/25 12:59 O2 Del Method Room Air 01/23/25 11:23 O2 Flow Rate 10 01/23/25 07:23 Discharge Plan Discharge Patient Disposition: Home Condition: Stable Prescriptions: New psyllium husk [Metamucil] 0.4 gram capsule 0.4 g PO BID 30 Days Qty: 60 0RF polyethylene glycol 3350 [Miralax] 17 gram powder in packet 17 g PO DAILY Qty: 30 2RF folic acid 1 mg tablet 1 mg PO DAILY Qty: 30 0RF ferrous sulfate 325 mg (65 mg iron) tablet 325 mg PO BID Qty: 60 0RF Continued sertraline 100 mg Tablet 100 mg PO DAILY fexofenadine 180 mg Tablet 180 mg PO DAILY amlodipine 5 mg Tablet 5 mg PO DAILY omeprazole 40 mg Capsule,Delayed Release(Dr/Ec) 40 mg PO DAILY propranolol 80 mg Capsule,Extended Release 24 Hr 80 mg PO DAILY losartan 25 mg Tablet 25 mg PO DAILY Discharge Orders: Discharge Order (Routine); Ordered 01/23/25 Ordered By: Kimberly Orozco Other Ambulatory Orders: Complete Blood Count w/Auto (Routine) Timeframe: 1 Week Location: Determined by Patient Ordered By: Kimberly Orozco Referrals: Len Lopez MD [Physician, General Surgery] - 7-10 days Yeny Murphy MD [Hospitalist, Oncology] - 7-10 days Referral Note: We have notified your physician's clinic of the need for a follow-up appointment to be scheduled. If you have not heard from them within the next 2 business days, please call them directly. Maria Eugenia Webster FNP [Primary Care Provider, Nurse Practitioner] - 4-7 days Referral Note: We have notified your physician's clinic of the need for a follow-up appointment to be scheduled. If you have not heard from them within the next 2 business days, please call them directly. Discharge Diet: As Directed Discharge Activity: Resume usual activity Patient Instructions: Colonoscopy, Polyethylene Glycol 3350 (By mouth), Gastrointestinal Bleeding (DC), Upper Endoscopy (DC), GI Post Discharge Instruc tions w/ Anesthesia, Opioid Safety Activity Restrictions/Additional Instructions: General surgery instructions: Please drink a lot of water, prevent constipation. If you see your hemorrhoids or get inflamed you can do sitz bath's, sitting in warm water for 10 to 15 minutes twice a day. Please take a daily laxative and fiber and increase your fiber intake in the diet. I will see you in the office in 1 week at that time we can discuss the possibility of hemorrhoidectomy to prevent further bleeding. Discharge Attestations Time Spent in Discharge Care*: greater than 30 min Quality Metrics Clinical Quality Measures [ No reported AMI, CVA or VTE this stay] Coding Level of Care Code Acute Code for Chg Fwd Diagnoses Bleeding internal hemorrhoids K64.8
== END 2025-01-23 13:01 | disposition home or self-care (01) ==
LOC: ER 21:15 → MEDSURG 21:29
PROVIDERS: Physician Assistant; Surgery; Admitting Provider Internal Medicine; Emergency Provider Emergency Medicine; PCP Nurse Practitioner; Visit Provider Internal Medicine
PROC: 0DJ08ZZ Inspection of Upper Intestinal Tract, Via Natural or Artificial Opening Endoscopic (ICD-10-PCS; principal; 2025-01-23 07:00)
PROC: 0DJD8ZZ Inspection of Lower Intestinal Tract, Via Natural or Artificial Opening Endoscopic (ICD-10-PCS; CPT 45378; 2025-01-23 07:00)
DX: K64.8 Other hemorrhoids (principal); K21.9 Gastro-esophageal reflux disease without esophagitis; G47.30 Sleep apnea, unspecified; I10 Essential (primary) hypertension; F41.8 Other specified anxiety disorders; F17.200 Nicotine dependence, unspecified, uncomplicated; K92.1 Melena; F43.10 Post-traumatic stress disorder, unspecified; F32.9 Major depressive disorder, single episode, unspecified; K92.2 Gastrointestinal hemorrhage, unspecified
CPT/HCPCS: 36415; 43239; 45378; 74177; 80048; 80053; 80306; 80503; 81001; 82274; 82728; 83010; 83540; 83550; 83615; 83690; 83735; 85025; 85045; 85610; 85730; 86140; 86850; 86900; 88305; 96374; 96375; 99285; G0378; J0360; J1756; J2405; J2470; J2704; J7030; J7040; J7799; J9999

== ENCOUNTER 2025-01-27 14:40 | Oncology outpatient (recurring) (ONCR) | payer OTHER, SELFPAY ==
[2025-01-27] MEDS: iron sucrose 200 MG in sodium chloride 0.9% (100 ml) 100 ML IV (15:12)
[2025-01-27] MEDS: sodium chloride 0.9% 250 ML 75 ML IV (15:12)
[2025-01-27 15:55] VITALS: BP 146/89; PULSE 84; RESP 17; TEMP 36.4; O2SAT 95
== END 2025-02-14 23:59 | disposition home or self-care (01) ==
PROVIDERS: PCP Nurse Practitioner; Visit Provider Internal Medicine
DX: D64.9 Anemia, unspecified (principal); Z79.899 Other long term (current) drug therapy
CPT/HCPCS: 96365; J1756; J7050

== ENCOUNTER 2025-02-03 09:15 | Outpatient (CLI) | payer OTHER, SELFPAY ==
--- NOTE | 2025-02-03 09:20 | CTR_ITS ---
PROCEDURE INFORMATION: Exam: CT Abdomen And Pelvis Without And With Contrast Exam date and time: 02/03/2025 9:34 AM Age: 39 years old Clinical indication: Condition or disease; Other: Hepatic cysts; Additional info: 1 year follow up on hepatic cysts TECHNIQUE: Imaging protocol: Computed tomography of the abdomen and pelvis without and with contrast. Radiation optimization: All CT scans at this facility use at least one of these dose optimization techniques: automated exposure control; mA and/or kV adjustment per patient size (includes targeted exams where dose is matched to clinical indication); or iterative reconstruction. Contrast material: OMNI 350; Contrast volume: 100 ml; Contrast route: INTRAVENOUS (IV); COMPARISON: CT abdomen pelvis w con* [id number] 01/21/2025 6:47 PM RADIATION DOSE METRICS: Total DLP (mGy-cm): 1466.49 FINDINGS: Liver: No focal hepatic lesion. Multiple scattered hepatic cysts, unchanged since prior CT from 01/21/2025 and prior MRI of the abdomen from 04/08/2024. Gallbladder and biliary ducts: Grossly unremarkable. No evidence of inflammatory changes. No biliary dilatation. Pancreas: Grossly unremarkable. Spleen: Grossly unremarkable. Adrenal glands: Grossly unremarkable. Kidneys and ureters: No evidence of renal parenchymal abnormality. No hydronephrosis or ureteral stone. Stomach and bowel: No bowel obstruction or perienteric inflammatory changes. Appendix: Normal appendix. Intraperitoneal space: No evidence of free air or fluid collection. Vasculature: No aneurysmal dilatation or dissection of the abdominal aorta. The celiac trunk, SMA and GREGORIO are grossly patent. No evidence of IVC thrombus. The portal vein, SMV and splenic veins are grossly patent. Lymph nodes: No adenopathy. Urinary bladder: Grossly unremarkable. Reproductive: Grossly unremarkable. Bones/joints: No evidence of acute fracture or aggressive osseous lesion. Soft tissues: No evidence of fluid collection or hematoma in the superficial soft tissues. Small fat containing right-sided inguinal hernia. CT/CT abdomen pelvis wo/w [id number] IMPRESSION: 1. Multiple hepatic cysts, unchanged.
[2025-02-03] MEDS: iohexol 350 mg/mL 500 mL Btl (per mL) IV (09:40)
== END 2025-02-03 09:16 | disposition home or self-care (01) ==
PROVIDERS: PCP Nurse Practitioner; Visit Provider Nurse Practitioner
DX: Z01.89 Encounter for other specified special examinations (principal); K76.89 Other specified diseases of liver; K40.90 Unilateral inguinal hernia, without obstruction or gangrene, not specified as recurrent; Z09 Encounter for follow-up examination after completed treatment for conditions other than malignant neoplasm
CPT/HCPCS: 74178; 99214

== ENCOUNTER 2025-02-19 06:39 | Day surgery (SDC) | payer OTHER, SELFPAY ==
[2025-02-19] VITALS (11 sets, daily range): BP systolic 139–161; BP diastolic 82–102; PULSE 66–82; RESP 16–18; TEMP 36.1–36.4; O2SAT 97–100
[2025-02-19] MEDS: sodium chloride 0.9% 1,000 ML 30 ML IV (07:07)
--- NOTE | 2025-02-19 07:25 | ANES.PREANE2 ---
Pre-Anesthetic Assessment Height/Weight: Height 6 ft Weight 250 lb Temp Pulse Resp BP Pulse Ox O2 Del Method 97.5 F L 66 18 139/85 99 Room Air 02/19/25 06:52 02/19/25 06:52 02/19/25 06:52 02/19/25 06:52 02/19/25 06:52 02/19/25 06:52 Preop Diagnosis: Hemorrhoids Operation Date: 02/19/25 08:25 Proposed Procedures p Exam Under Anesthesia 13138 52343 47271 K64.8(Not Applicable) - Len Lopez MD s POSSIBLE Hemorrhoidectomy(Not Applicable) - Len Lopez MD s POSSIBLE Hemorrhoid Banding(Not Applicable) - Len Lopez MD Was Beta Sofia taken within 24 hours: Yes Was Clonidine taken within 24 hours: N/A Last intake: Intake Last Liquid Date 02/18/25 Last Liquid Time 20:30 Last Solid Date 02/18/25 Last Solid Time 20:30 Social No alcohol and No tobacco Exam alert, oriented x 3, clear to auscultation bilaterally and regular rate & rhythm Airway Submandibular: within normal limits Cervical ROM: within normal limits Mallampati: Class III Dentition: full Comments: Comments: large blum Anesthetic Plan ASA status: 3 Anesthesia: General Other: No prior issues with anesthesia NPO since yesterday evening History of JAVI PTSD/depression GERD, on omeprazole Hypertension, controlled with amlodipine, will losartan and propranolol. Preop BP 139/85 Chronic anemia noted, hemoglobin 8.3. recheck cbc 10.7 today Plan for GETA Medications/Allergies Home Medications ?Medication ?Instructions ?Recorded ?Confirmed ?Last Taken ?Type amlodipine 5 mg tablet 5 mg PO DAILY 01/22/25 02/18/25 02/18/25 History fexofenadine 180 mg tablet 180 mg PO DAILY 01/22/25 02/18/25 02/18/25 History losartan 25 mg tablet 25 mg PO DAILY 01/22/25 02/18/25 02/18/25 History omeprazole 40 mg capsule,delayed 40 mg PO DAILY 01/22/25 02/18/25 02/18/25 History release propranolol 80 mg capsule,24 80 mg PO DAILY 01/22/25 02/18/25 02/18/25 History hr,extended release sertraline 100 mg tablet 100 mg PO DAILY 01/22/25 02/18/25 02/17/25 History folic acid 1 mg tablet 1 mg PO DAILY #30 tabs 01/23/25 02/18/25 02/18/25 Rx polyethylene glycol 3350 17 gram 17 g PO DAILY #30 ea 01/23/25 02/18/25 02/18/25 Rx oral powder packet (Miralax) psyllium husk 0.4 gram capsule 0.4 g PO BID 1 month #60 caps 01/23/25 02/18/25 02/18/25 Rx (Metamucil) ferrous sulfate 325 mg (65 mg 325 mg PO BID #60 tabs 01/26/25 02/18/25 02/18/25 Rx iron) tablet Allergies Allergy/AdvReac Type Severity Reaction Status Date / Time bupropion (From Wellbutrin) Allergy ADR-Agitate Verified 02/03/25 10:55 d Current Medications Generic Name Dose Route Start Last Admin Trade Name Freq PRN Reason Stop Dose Admin Sodium Chloride 1,000 mls @ 30 mls/hr 02/19/25 06:45 02/19/25 07:07 Sodium Chloride 0.9% IV 02/20/25 06:44 30 mls/hr .Q24H HUDSON Administration PFSH Anesthesia Medical History Deafness Hypertension GERD (gastroesophageal reflux disease) Surgical History Status post colonoscopy (07/22/21) History of ankle surgery (3) bilateral S/P left knee arthroscopy July 2018 History of back surgery ablation of nerves in back L3-L5 History of esophagogastroduodenoscopy (EGD) (07/22/21) grade b espophagitis Family History Mother Anemia Arrhythmia Atrial fibrillation Pulmonary embolism Grandfather Congestive heart failure (CHF) Grandmother Congestive heart failure (CHF) TIA (transient ischemic attack) Father Congestive heart failure (CHF) Other CAD (coronary artery disease) Congenital heart disease Diabetes Hypertension Stroke Denies family history of Aneurysm Hyperthyroidism Hypothyroidism Sudden cardiac Chronic kidney disease (CKD) Carotid artery disease Cardiomyopathy Social History Smoking and tobacco/nicotine status: former use of tobacco/nicotine (chewing tobacco now) Quit status (tobacco/nicotine): has quit using Year quit tobacco: 2007 Alcohol intake: current Alcohol intake frequency: few times a week Alcohol type: beer Substance/Drug Use: never Data Anesthesia 02/19/25 07:32 Cardiac Studies: Echocardiogram 07/21/24 Sestamibi Stress Test (Cardiology) 04/17/24 Cardiac Event Monitor 06/12/23
[2025-02-19 07:44] LABS: Basophils % 0.7 %; Eosinophils # 0.2 10^3/uL (0.0-0.8); Eosinophils % 4.3 %; Lymphocytes % 35.4 %; Mean Corpuscular HGB Conc 29.7 g/dL (30-55); Mean Corpuscular Hemoglobin 22.1 pg (27-33); Mean Corpuscular Volume 74.4 fl (82-101); Monocytes # 0.6 10^3/uL (0.2-0.9); Monocytes % 10.9 %; Neutrophils # 2.72 10^3/uL (1.8-7.7); Neutrophils % 48.5 %; Nucleated Red Blood Cells % 0 %; Platelet Count 232 10^3/cmm (157-399); Red Blood Count 4.84 10^6/uL (3.85-5.65); Red Cell Distribution Width 24.8 % (12.1-15.1)
--- NOTE | 2025-02-19 07:59 | W.PM.OPSUD ---
Surgery/Procedure H&P Update DATE OF PROCEDURE: February 19, 2025 DATE H&P PERFORMED: 02/03/25 H&P UPDATE INFORMATION: I have reviewed H&P completed within last 30 days, I have examined patient prior to procedure, No changes to prior documentation, Changes to prior documentation as noted here and Risks and benefits of the procedure reviewed PREOP DIAGNOSIS: Hemorrhoids PLANNED PROCEDURE: Operation Date: 02/19/25 08:25 Proposed Procedures p Exam Under Anesthesia 31411 [id number] 04187 K64.8(Not Applicable) - Len Lopez MD s POSSIBLE Hemorrhoidectomy(Not Applicable) - Len Lopez MD s POSSIBLE Hemorrhoid Banding(Not Applicable) - Len Lopez MD
[2025-02-19] MEDS: ceFAZolin 2,000 mg SDV 2000 MG IVP (08:31)
[2025-02-19] MEDS: lidocaine 2% jelly 1 APPLIC/6 ML TUBE 2 APPLIC TOPICAL (09:18)
[2025-02-19] MEDS: lidocaine-epi 1% 20 mL INJ 10 ML INJECTION (09:50)
[2025-02-19] MEDS: BUPivacaine 0.25% INJ 10 mL INJECTION (09:50)
--- NOTE | 2025-02-19 10:16 | P.OP_ITS ---
Operative Report Date of procedure: February 19, 2025 Pre-op diagnosis: Internal hemorrhoids Post-op diagnosis: Internal and external hemorrhoids of the bilateral posterolateral columns as well is the anterior column Post-op findings: There were very large hemorrhoids of the bilateral posterolateral columns, there is a small hemorrhoid of the anterior colon. Posterior lateral hemorrhoids had an internal and external component Procedure done: Excisional hemorrhoidectomy of 2 columns, hemorrhoid banding x 2, exam under anesthesia Specimens removed/disposition: Hemorrhoids Surgeon: Len Lopez MD Residential Child Care Counselor: ELAINE OR STaff Estimated blood loss: 10 Brief History: 40-year-old male with history of rectal bleeding hemorrhoids we discussed all risk benefits and decided to proceed to the OR for hemorrhoidal banding possible hemorrhoidectomy. Procedure: Patient was brought into the OR. General anesthesia was given. Patient was transferred to the bed and then a prolonged position. The perianal region was prepped and draped in usual sterile fashion. Very large external hemorrhoids were noted at this point, while I had initially offered patient banding I think this was not appropriate to the size of the hemorrhoids. Before screening I discussed with family member and informed her of the findings and she showed understanding. I then did a timeout. Local anesthesia was infiltrated around the anus for a field block. Rectal exam under anesthesia was done, there were large hemorrhoids of the posterolateral columns with internal/external component and there was a small anterior hemorrhoid. I decided to do a excisional hemorr hoidectomy of the posterolateral columns, I did this by grabbing the hemorrhoid at the base and then proceeded to ligated with #3 oh Good. Once the inflow bias ligated I then proceeded to use electrocautery to amirah the area around the hemorrhoid and proceeded with excision of the hemorrhoid using a combination of blunt dissection and sharp dissection with careful consideration of preserving the anal sphincter. The internal/external component of the left lateral hemorrhoid was excised on this fashion. Once the hemorrhoid was excised I then used #3-0 chromic Good to close the defect thinking careful consideration of good alignment of the mucocutaneous junction. I then placed attention to the right posterolateral colon and proceeded to do an excisional hemorrhoidectomy in the same fashion. I then proceeded to identify the anterior column hemorrhoid I grasped it with an Allis clamp and proceeded to place a band in a standard fashion. There was additional hemorrhoidal tissue in the right posterolateral colon deeper to the area of excision that I decided to band to prevent recurrence. At the end of the procedure the wound appeared healthy with and proceeded to pack the wound with lidocaine soaked Surgifoam. At the end of procedure all counts were correct the patient tolerated well the procedure was transferred to PACU in stable condition.
[2025-02-19] MEDS: fentaNYL 50 mcg/mL INJ 2mL IVP (10:26)
[2025-02-19] MEDS: oxyCODONE 5 mg IR Tab/Cap PO (11:11)
--- NOTE | 2025-02-19 11:30 | ANE.PACU2 ---
Inpatient post-anesthesia follow up: Airway intact: Yes Vital signs: Temperature 97 F Pulse Rate 70 Respiratory Rate 16 Blood Pressure 152/90 Pulse Oximetry 100 Oxygen Delivery Me thod Room Air Oxygen Flow Rate Fraction of Inspir ed Oxygen Hydration adequate: Yes Nausea and vomiting: No Pain level: 1 Mental status: Baseline
== END 2025-02-19 11:30 | disposition home or self-care (01) ==
PROVIDERS: Student in an Organized Health Care Education/Training Program; PCP Nurse Practitioner; Visit Provider Surgery
PROC: (CPT 46260; principal; 2025-02-19 08:15)
PROC: (CPT 46260; 2025-02-19 08:15)
PROC: (CPT 46221; 2025-02-19 08:15)
DX: K64.8 Other hemorrhoids (principal); K64.4 Residual hemorrhoidal skin tags; G47.33 Obstructive sleep apnea (adult) (pediatric); K21.9 Gastro-esophageal reflux disease without esophagitis; H91.90 Unspecified hearing loss, unspecified ear; I10 Essential (primary) hypertension; F17.220 Nicotine dependence, chewing tobacco, uncomplicated; D64.9 Anemia, unspecified; Z88.8 Allergy status to other drugs, medicaments and biological substances; Z79.899 Other long term (current) drug therapy
CPT/HCPCS: 46260; 85025; 88304; J0690; J1100; J2250; J2405; J2704; J3010; J3490; J7030; J9999

== ENCOUNTER 2025-02-25 06:56 | Outpatient (CLI) | payer OTHER, SELFPAY ==
--- NOTE | 2025-02-25 07:10 | MR_ITS ---
WS: [id number] MRI CERVICAL SPINE NONCONTRAST TECHNIQUE: Sagittal T1, T2 and STIR imaging. Axial T2, gradient, and fiesta imaging. CLINICAL INFORMATION: CERVICALGIA COMPARISON: MRI 2022 FINDINGS: Straightening of the normal cervical lordosis. Mild disc bulging worse at C5-C6 and C6-C7. Small annular tear at C5-6. Disc bulging at C6-7 has slightly progressed. C2-C3: Moderate facet arthropathy. Moderate LEFT bony foraminal narrowing. C3-C4: Moderate facet arthropathy. Mild to moderate LEFT bony foraminal narrowing. C4-C5: Mild disc bulging. Mild RIGHT bony foraminal narrowing. Moderate facet arthropathy. C5-C6: Disc bulging with a small annular tear. Moderate facet arthropathy. Moderate LEFT bony foraminal narrowing. C6-C7: Mild disc bulging. Mild to moderate LEFT bony foraminal narrowing. Spinal canal is patent. C7-T1: Mild bilateral bony foraminal narrowing. Spinal canal is patent. Visualized brain stem structures: Normal. Prevertebral soft tissues: Normal. MR/MR cervical spin wo con* [id number] IMPRESSION: 1. Straightening of the normal cervical lordosis. Cord signal is normal. No hi gh-grade central canal stenosis. 2. Mild disc bulging C5-6 with small annular tear unchanged from previous. Spi nal canal is patent. 3. Mild disc bulging C6-7 progressed compared to previous with slight effaceme nt of the ventral thecal sac. Spinal canal is patent. 4. Mild to moderate bony foraminal narrowing worse at LEFT C2-3, LEFT C3-4, LE FT C5-C6 and LEFT greater than RIGHT C6-7. This is similar to previous. 5. Moderate facet arthropathy worse at LEFT C2-3, LEFT C3-4 bilateral C4-5 and bilateral C5-6.
== END 2025-02-25 06:57 | disposition home or self-care (01) ==
PROVIDERS: PCP Nurse Practitioner; Visit Provider Nurse Practitioner
DX: M50.322 Other cervical disc degeneration at C5-C6 level (principal); M48.02 Spinal stenosis, cervical region; M47.812 Spondylosis without myelopathy or radiculopathy, cervical region
CPT/HCPCS: 72141

== ENCOUNTER 2025-03-04 14:32 | Oncology outpatient (recurring) (ONCR) | payer OTHER, SELFPAY | END 2025-03-16 23:59 | disposition home or self-care (01) | PROVIDERS: PCP Nurse Practitioner; Visit Provider Internal Medicine | DX: D50.0 Iron deficiency anemia secondary to blood loss (chronic) (principal); Z79.899 Other long term (current) drug therapy; Z87.891 Personal history of nicotine dependence; Z98.890 Other specified postprocedural states | CPT/HCPCS: 99204 ==

== ENCOUNTER → 2025-03-10 08:04 | Outpatient (BNVA) | payer OTHER, SELFPAY | PROVIDERS: PCP Nurse Practitioner; Visit Provider Surgery | DX: L82.1 Other seborrheic keratosis (principal); I78.8 Other diseases of capillaries; D23.39 Other benign neoplasm of skin of other parts of face; L81.4 Other melanin hyperpigmentation; L91.8 Other hypertrophic disorders of the skin; K64.8 Other hemorrhoids | CPT/HCPCS: 99024; 99203 ==